=== PATIENT | female | born 1980 | race Caucasian/White ===

== ENCOUNTER → 2020-02-23 12:10 | Outpatient (CLI) | payer OTHER, SELFPAY ==
--- NOTE | ~2020-02-23 | MR_ITS ---
EXAMINATION: MR brain/brain stem wo con DATE: 02/23/2020 12:51 INDICATION: Migraine headache. Not intractable without status migrainosus. TECHNIQUE: Magnetic resonance imaging (MRI) of the brain and brainstem was performed without intraven ous contrast. Sequences included sagittal and axial T1-weighted FSE, axial diffusion-weighted FS EPI, axial T2*-weighted GRE, axial T2-weighted FLAIR Propeller, and axial T2-weighted Propeller. Apparent diffusion coefficient (ADC) maps were created. COMPARISON: Brain MRI 10/29/2009 FINDINGS: There is no intracranial hemorrhage, acute infarction, or abnormal intracranial mass lesion . The ventricles are normal in size. The orbits are normal. The paranasal sinuses are clear. The mast oid air cells are normal. IMPRESSION: 1. Normal brain. Reviewed, dictated and finalized at location B. IMPRESSION: 1. Normal brain.
== END ==
PROVIDERS: PCP Family Medicine; Visit Provider Family Medicine
DX: G43.909 Migraine, unspecified, not intractable, without status migrainosus (principal)
CPT/HCPCS: 70551

== ENCOUNTER → 2020-03-23 15:46 | Outpatient (CLI) | payer OTHER, SELFPAY ==
--- NOTE | ~2020-03-23 | US_ITS ---
EXAMINATION: US transvaginal DATE: 03/23/2020 16:11 INDICATION: Pelvic pain Comparison:Ultrasound dated 07/05/2008 TECHNIQUE: Multiple transabdominal and endovaginal sonographic images of the pelvis performed. FINDINGS: The uterus measures 7.2 x 4.6 x 4.5 cm. The endometrial complex measures 7 mm. The right ovary measures 1.5 x 1.6 x 1.3 cm and the left ovary measures 4.2 x 2.9 x 2.8 cm. There is a 3.1 cm left ovarian cyst. There is free fluid in the pelvis. There are no abnormal masses seen on either side. IMPRESSION: 1. 3.1 cm left ovarian cyst. Reviewed, dictated and finalized at location A.
== END ==
PROVIDERS: Visit Provider Nurse Practitioner
DX: N83.202 Unspecified ovarian cyst, left side (principal)
CPT/HCPCS: 76830

== ENCOUNTER → 2020-04-20 15:17 | Outpatient (CLI) | payer OTHER, SELFPAY ==
--- NOTE | ~2020-04-20 | CT_ITS ---
EXAMINATION: CT abdomen pelvis w con INDICATION: Right upper quadrant pain and swelling TECHNIQUE: Computed tomographic images of the abdomen and pelvis were obtained after the administrati on of 100 cc of Omnipaque 350 intravenous contrast. The dose-length product (DLP) was 551.31 mGy-cm. Automated exposure control and iterative reconstruction technique were employed. COMPARISON: 02/27/2006 FINDINGS: The lung bases are clear. The heart size is normal. The liver, spleen, pancreas, gallbladde r, and adrenal glands are normal. The kidneys are unremarkable. No pathologically enlarged abdominal or pelvic lymph nodes are identified. There is no free intraperitoneal gas or evidence of bowel obstr uction. A 3 cm cyst is noted in the left ovary. The appendix is normal. There is moderate lumbar spon dylosis at L5-S1. IMPRESSION: 1. No CT correlate for the patient's symptoms. Reviewed, dictated and finalized at location A.
== END ==
PROVIDERS: PCP Family Medicine; Visit Provider Nurse Practitioner
DX: R10.2 Pelvic and perineal pain (principal)
CPT/HCPCS: 74177; Q9967

== ENCOUNTER → 2020-05-11 15:44 | Outpatient (CLI) | payer OTHER, SELFPAY ==
--- NOTE | ~2020-05-11 | US_ITS ---
EXAMINATION: US transvaginal DATE: 05/11/2020 16:33 INDICATION: Ovarian cyst. TECHNIQUE: Multiple transvaginal sonographic images of the pelvis were obtained. COMPARISON: CT abdomen and pelvis 04/20/2020, ultrasound pelvis 03/23/2020 FINDINGS: The uterus is retroflexed and measures 8.7 x 4.2 x 4.2 cm. There are nabothian cysts in the cervix. T here is no free fluid in the pelvis. The endometrial complex measures 6 mm in thickness. The right ov nicole measures 3.6 x 1.9 x 3.2 cm. The left ovary measures 3.6 x 2.2 x 2.3 cm. There is normal vascular flow in the ovaries. IMPRESSION: 1. Normal ovaries. Reviewed, dictated and finalized at location B. HANA DEVELOPER IMPRESSION: 1. Normal ovaries.
== END ==
PROVIDERS: PCP Family Medicine; Visit Provider Obstetrics & Gynecology Gynecology
DX: N83.202 Unspecified ovarian cyst, left side (principal)
CPT/HCPCS: 76830

== ENCOUNTER 2020-05-20 11:00 | Outpatient (RCR) | payer OTHER, SELFPAY ==
--- NOTE | 2020-04-27 13:32 | PTOPEVAL ---
PHYSICAL THERAPY EVALUATION AND PLAN OF CARE Thank you for referring Luli Fish to [facility].? The patient is scheduled to be seen for therapy? 1x/week for 4-8 weeks. Please review, sign, date and return this plan of care ALBERTA. I agree with and certify that the following plan of care is medically necessary. Referring Physician Date Attending Provider: Nahomy Rodriguez, Evaluation Diagnosis right lower quadrant pain Onset 1 year Subjective Information Reports right lower abdominal Query Text:As Reported By Patient/ pain. States that she feels a Family tug of war in the right lower part of the abdomen. Sometimes feels a wave and feels like there is something in the way. States that she did therapy for this over 6 years ago and they did pressure point therapy to reduce adhesions. Self Report Pain Assessment Right Lower Abdomen Reported Pain Level 2 Pain Description Pulling Pain Frequency Chronic,Continuous Lowest Pain Intensity 2 Greatest Pain Intensity 8 Pain Score Pain Score 2: Self Report Interventions Used Interventions Used By Clinicians Exercise Cervical and Lumbar ROM Lumbar ROM Reason Not Measured WNL/Left,WNL/Right Lower Extremity Range of Motion General Lower Extremity Range of Motion Reason Not Measured WFL/Left,WFL/Right Cervical and Lumbar Muscle Testing Lumbar Strength Lower Abdominal Strength 2+Poor+ Lower Extremity Muscle Strength Testing General Lower Extremity Strength Gross Lower Extremity Strength right side hip flexion and extension: 4+/5; bilateral hip abduction: 4-/5 Muscle Length Testing Muscle Length Testing Piriformis w/Hip Flexion >90 Degrees (R) WFL,(L) WFL Piriformis w/Hip Flexion <90 Degrees (L) Mild Tightness,(R) Moderate Tightness Left Hamstring Length -30 Query Text:(90 - 90 Position) Right Hamstring Length -22 Query Text:(90 - 90 Position) Right Prone Knee Flexor Muscle Length ( 130 degrees) Left Prone Knee Flexor Muscle Length ( 142 degrees) Palpation Assessment Palpation Palpation -bilateral lumbar paraspinals and quadratus lumborum: tight to palpation and moderate tenderness. -bilateral hip flexors through abdomen: very mild right
--- NOTE | 2020-05-20 11:38 | PTOPEVAL ---
PHYSICAL THERAPY DISCHARGE SUMMARY Thank you for referring Luli Fish to [facility].? Luli has been seen in PT x 4 visits and is now pain free and no tugging sensation with R lower quadrant region. She is now ready for d/c from PT. I agree with Luli's discharge from PT. Referring Physician Date Admitting Provider: Attending Provider: Nahomy Rodriguez DO Referring Provider: *PT Outpatient Evaluation Start: 04/27/20 12:33 Freq: Status: Active Protocol: Document 05/20/20 11:05 MC (Rec: 05/20/20 11:38 MC [id number]) Therapy Assessment Status Assessment Status Assessment Status Discharge Evaluation Information Problem Subjective Information Luli reports no lower R Query Text:As Reported By Patient/ quadrant pain nor any tugging Family or pulling sensation. Has returned to usual activities - no pain. Pain Assessment Timing of Pain Assessment Timing of Pain Assessment Assessment Self Report Self Report Pain Level 0 Pain Score Pain Score 0: Self Report Cervical and Lumbar ROM Lumbar ROM Lumbar ROM WNL Lumbar Comments pelvis/sacrum/SIJ - level, symmetrical motion with trunk motion Palpation Assessment Palpation Palpation almost symmetrical lower quadrant mobility - very mild decrease on R with lateral to medial motion. Equal SIJ mobility with testing from ankles. Equal LE movement felt with cranio-sacral mobility testing. No discomfort with mobility testing. PT Clinical Summary Clinical Summary Protocol: PTEVCODE PT Clinical Summary Luli is doing well - no c /o's discomfort or soft tissue tension. Able to promote symmetrical lower quadrant mobility with soft tissue mobilization techniques. She is ready for d/c from PT.
== END 2020-05-21 08:22 | disposition home or self-care (01) ==
LOC: ANHPT 11:00
PROVIDERS: PCP Family Medicine; Visit Provider Family Medicine
DX: R10.31 Right lower quadrant pain (principal)
CPT/HCPCS: 97110; 97140; 97162

== ENCOUNTER → 2020-10-14 17:40 | Outpatient (CLI) | payer OTHER, SELFPAY ==
--- NOTE | ~2020-10-14 | MM_ITS ---
EXAMINATION: MM screening dian BI w zenobia HISTORY: Screening TECHNIQUE: Craniocaudal and mediolateral oblique 3-D tomosynthesis images were obtained and synthetic 2-D images were generated. CAD analysis was submitted and interpreted. COMPARISON: No prior mammogram is available for comparison at this institution. BREAST PARENCHYMAL COMPOSITION: The breasts are heterogeneously dense, which may obscure small masses . FINDINGS: There is no evidence of suspicious mass, calcification, or architectural distortion to sugg est malignancy in either breast. There has been no suspicious interval change. IMPRESSION: 1. No mammographic evidence of malignancy. 2. Recommend routine screening mammography in one year. BI-RADS Category 1: Negative Reviewed, dictated and finalized at location A.
== END ==
PROVIDERS: Visit Provider Nurse Practitioner
DX: Z12.31 Encounter for screening mammogram for malignant neoplasm of breast (principal)
CPT/HCPCS: 77063; 77067

== ENCOUNTER → 2021-11-22 16:33 | Outpatient (CLI) | payer OTHER, SELFPAY ==
--- NOTE | ~2021-11-22 | MM_ITS ---
EXAMINATION: MM screening dian BI w zenobia HISTORY: Screening mammogram TECHNIQUE: Craniocaudal and mediolateral oblique 3-D tomosynthesis images were obtained and synthetic 2-D images were generated. CAD analysis was submitted and interpreted. COMPARISON: 10/14/2020 bilateral screening mammogram BREAST PARENCHYMAL COMPOSITION: There are scattered areas of fibroglandular density. FINDINGS: There is no evidence of suspicious mass, calcification, or architectural distortion to sugg est malignancy in either breast. There has been no suspicious interval change. IMPRESSION: 1. No mammographic evidence of malignancy. 2. Recommend routine screening mammography in one year. BI-RADS Category 1: Negative. Reviewed, dictated and finalized at location A.
== END ==
PROVIDERS: PCP Family Medicine; Visit Provider Nurse Practitioner
DX: Z12.31 Encounter for screening mammogram for malignant neoplasm of breast (principal)
CPT/HCPCS: 77063; 77067

== ENCOUNTER 2022-03-14 16:02 | Emergency (ER) | payer OTHER, SELFPAY ==
--- NOTE | ~2022-03-14 | US_ITS ---
EXAMINATION: US pelvic complete w TV DATE: 03/14/2022 22:01 INDICATION: RLQ pain, R ovarian cyst on CT, r/o torsion TECHNIQUE: Multiple transabdominal and endovaginal sonographic images of the pelvis were obtained. COMPARISON: CT abdomen and pelvis, same date. FINDINGS: Uterus: 6.3 x 4.8 x 4.2 cm. Retroverted uterus. Endometrial complex measures 11 mm. Somewhat masslike appearance of the cervix, with multiple avascular, ovoid hypoechoic areas with increased through tra nsmission, many with punctate internal echogenicities with tail artifact, some may solid internal com ponent versus debris. Right Ovary: 3.9 x 2.7 x 3.8 cm. Vascular flow is present. 2.9 cm simple right ovarian cyst. Left Ovary: 3.1 x 1.6 x 2.2 cm. Vascular flow is present. There is no free fluid in the pelvis. IMPRESSION: 1. Multicystic, possibly cystic and solid cervical lesions which may represent multiple nabothian cys ts, complex nabothian cyst dilation (the so-called tunnel cluster), tumor (such as adenocarcinoma or adenoma malignum), or cystic cervicitis. Recommend gynecology referral for further evaluation. 2. No sonographic evidence of ovarian torsion. Reviewed, dictated and finalized at location K. IMPRESSION: 1. Multicystic, possibly cystic and solid cervical lesions which may represent multiple nabothian cysts, complex nabothian cyst dilation (the so-called tunnel cluster), tumor (such as adenocarcinoma or adenoma malignum), or cystic cervic itis. Recommend gynecology referral for further evaluation. 2. No sonographic evidence of ovarian torsion.
--- NOTE | ~2022-03-14 | CT_ITS ---
EXAMINATION: CT abdomen pelvis wo con DATE: 03/14/2022 19:08 INDICATION: RLQ pain / R anterior hip pain TECHNIQUE: Computed tomography (CT) of the abdomen and pelvis was performed without intravenous contr ast. Automated exposure control and iterative reconstruction technique were employed. The dose-length product was 428.15 mGy-cm. COMPARISON: 04/20/2020. FINDINGS: Lower thorax: Unremarkable Liver: Normal. Biliary/Gallbladder: Gallbladder is normal. No bile duct dilation. Pancreas: No mass or duct dilation. Spleen: Normal. Adrenals:No mass. Kidneys: No mass, stone, or hydronephrosis. GI tract: No small or large bowel dilation. Normal appendix. Mesentery/Peritoneum: No ascites, mass, or free air. Retroperitoneum: No mass. Pelvis: Pelvic organs are within normal limits. 2.7 cm right ovarian cyst, doubtful clinical signific ance. Retroverted uterus. Partially distended urinary bladder. Soft Tissues: Soft tissues and body wall unremarkable. Bones: No acute osseous finding. IMPRESSION: No acute abdominopelvic process detected. Reviewed, dictated and finalized at location K.
[2022-03-14 16:09] VITALS: BP 146/79; PULSE 82; RESP 18; TEMP 36.8; O2SAT 99
--- NOTE | 2022-03-14 18:39 | ED.GENADULT ---
HPI - General Adult General Chief complaint: Unspecified Stated complaint: Right Side Pain x 3 days Time Seen by Provider: 03/14/22 18:08 Source: patient Mode of arrival: ambulatory Limitations: no limitations History of Present Illness HPI narrative: Patient is a 41-year-old female who presents the ED with report of right-sided/right lower quadrant/right upper hip pain for the past 3 days. Pain aggravated with movement and walking. No other significant aggravating factors. No known injury. She has tried taking ibuprofen at home without relief. She otherwise denies any other symptoms, fever, nausea, vomiting, diarrhea, constipation, urinary symptoms, numbness, tingling, weakness. Related Data Home Medications Medication Instructions Recorded Confirmed cholecalciferol (vitamin D3) 1,250 1,250 mcg PO WEEKLY 02/17/20 04/22/20 mcg (50,000 unit) capsule cyanocobalamin (vitamin B-12) 1,000 mcg IM WEEKLY 02/17/20 04/22/20 1,000 mcg/mL injection solution levothyroxine 125 mcg capsule 125 mcg PO DAILY 02/17/20 04/22/20 (Tirosint) norgestimate-ethinyl estradiol 1 tablet PO DAILY 02/17/20 04/22/20 0.18 mg/0.215mg/0.25mg-35 mcg(28)tablet (Ortho Tri-Cyclen (28)) Allergies Allergy/AdvReac Type Severity Reaction Status Date / Time iodine Allergy Unknown unkn Verified 04/22/20 13:25 sulfamethizole Allergy Unknown Skin Verified 04/22/20 13:25 Reaction sulfamethoxazole Allergy Unknown RASH Verified 04/22/20 13:25 trimethoprim Allergy Unknown RASH Verified 04/22/20 13:25 Contrast Media Allergy Mild ITCHING Uncoded 04/22/20 13:25 Review of Systems Review of Systems: CONSTITUTIONAL: Denies fever, chills, or sweats. CARDIOVASCULAR: Denies chest pain. RESPIRATORY: Denies dyspnea. GASTROINTESTINAL: Reports right lower quadrant abdominal pain. Denies constipation, nausea, vomiting, or diarrhea. GENITOURINARY: Denies dysuria or hematuria. MUSCULOSKELETAL: Reports right hip/right side pain. NEUROLOGIC: Denies tingling, numbness, or weakness. All systems reviewed & are unremarkable except as noted in HPI and below PMFSH Past Medical History Medical History Hypothyroidism Surgical History Surgical History History of bunionectomy History of section History of surgical removal of ganglion cyst Social History Social History Smoking status: Never smoker Alcohol intake: never Exam Narrative: GENERAL: Well appearing, well-nourished, non-toxic, in no acute distress. HEAD: Normocephalic, atraumatic. NECK: Supple. No adenopathy, no masses. RESPIRATORY: Airway patent, respirations nonlabored. Clear to auscultation bilaterally, no rales, rhonchi, wheezing. CARDIOVASCULAR: Regular rate and rhythm without murmurs, rubs, or gallops. Peripheral pulses 2+ and equal bilaterally. ABDOMINAL: Soft, mild tenderness to palpation in right lower quadrant, right lateral abdomen, right pelvic region, and over anterior iliac crest. Nondistended, no hepatosplenomegaly. Normoactive BS. MUSCULOSKELETAL: Moves all extremities. Strength/ROM intact without gross deformities. No reproduction of pain with movement of right hip/right lower extremity. SKIN: Warm, dry, normal color. No rashes. NEURO: A&O X3. Speech clear. Cranial nerves II-XII grossly intact. Steady gait. No ataxic movements. PSYCHIATRIC: Appropriate mood and affect. Normal interaction. Course Vital Signs Vital signs: Vital Signs Temperature 98.3 F 03/14/22 16:09 Pulse Rate 82 03/14/22 16:09 Respiratory Rate 18 03/14/22 16:09 Blood Pressure 146/79 H 03/14/22 16:09 Pulse Oximetry 99 03/14/22 16:09 Oxygen Delivery Room Air 03/14/22 16:09 Temperature 98.3 F 03/14/22 16:09 Pulse Rate 81 03/14/22 23:01 Respiratory Rate 18 03/14/22 23:01 Blood Pressure 1
[2022-03-14 18:56] LABS: Basophils Absolute Auto 0.1 K/mm3 (0.0-0.1); Eosinophils Absolute Auto 0.2 K/mm3 (0-0.3); Eosinophils Percent Auto 3.6 % (0-4.4); Hematocrit 37.4 % (37.0-47.0); Hemoglobin 12.6 g/dL (12.0-15.0); Immature Granulocyte Absolute 0.01 K/mm3 (0.00-0.031); Immature Granulocyte Percent A 0.1 % (0-0.5); Lymphocytes Percent Auto 20.9 % (18.3-44.2); Mean Corpuscular HGB Conc 33.7 g/dl (32-36); Mean Corpuscular Hemoglobin 31.7 pg (26-34); Mean Corpuscular Volume 94.2 fl (80-100); Mean Platelet Volume 8.8 fl (7.4-10.4); Monocytes Absolute Auto 0.4 K/mm3 (0.1-0.6); Monocytes Percent Auto 5.5 % (2.6-8.5); Neutrophils Absolute Auto 4.6 K/mm3 (1.3-6.7); Neutrophils Percent Auto 68.9 % (45.5-73.1); Platelet Count Result 271 k/mm3 (150-375); Red Blood Count 3.97 M/mm3 (4.2-5.4); Red Cell Distribution Width 13.1 % (11.5-14.5); White Blood Count 6.7 K/mm3 (4.5-10.0)
[2022-03-14 19:07] LABS: Alanine Aminotransferase 23 U/L (6-35); Albumin Level 4.1 g/dL (3.5-5.1); Alkaline Phosphatase 107 U/L (38-126); Anion Gap 7 mmol/L (8-16); Aspartate Amino Transferase 23 U/L (14-36); Bilirubin,Total 0.4 mg/dL (0.2-1.3); Blood Urea Nitrogen 12 mg/dL (7-17); Calcium 9.1 mg/dL (8.4-10.2); Carbon Dioxide 24 mmol/L (22-30); Chloride 104 mmol/L (98-107); Estimated CRCL calculation 94 ml/min; Estimated Glomerular Filt Rate > 60; Glucose 93 mg/dL (65-110); Potassium 3.4 mmol/L (3.4-5.0); Sodium 135 mmol/L (137-145)
[2022-03-14 19:15] LABS: Bacteria Urine Trace /hpf; Mucus Urine Rare /lpf; RBC Urine 0-2 /hpf (0-2); Squamous Epithelial Cell Urine Few /hpf (Few); WBC Urine 0-3 /hpf
[2022-03-14 19:19] LABS: Appearance Urine Slightly Cloudy (Clear); Bilirubin Urine Negative (Negative); Color Urine Yellow (Yellow); Glucose Urine UA Negative (Negative); Ketones Urine 1+ mg/dL (Negative); Leukocyte Esterase Ur Negative LEU/UL (Negative); Nitrate Urine Negative (Negative); Protein Urine Negative (Negative); Specific Grav Ur 1.015 (1.001-1.035); Urobilinogen Urine 0.2 mg/dL (<2.0); pH Urine 6.5 (5.0-9.0)
[2022-03-14 19:20] LABS: Add Urine Microscopic? YES; Blood Urine Trace-Intact (Negative)
[2022-03-14] MEDS: KETOROLAC 30 MG/ML VIAL (*BKC) IV PUSH (19:45)
[2022-03-14 23:01] VITALS: BP 130/88; PULSE 81; RESP 18; O2SAT 99
== END 2022-03-14 23:03 | disposition home or self-care (01) ==
PROVIDERS: Physician Assistant; Emergency Provider Emergency Medicine; PCP Family Medicine
DX: R10.31 Right lower quadrant pain (principal); M25.551 Pain in right hip; N83.201 Unspecified ovarian cyst, right side; N88.9 Noninflammatory disorder of cervix uteri, unspecified; E03.9 Hypothyroidism, unspecified
CPT/HCPCS: 36415; 74176; 76830; 76856; 80053; 81001; 85025; 96365; 96375; 99284; J0131; J1885

== ENCOUNTER → 2022-05-10 15:05 | Outpatient (CLI) | payer OTHER, SELFPAY ==
--- NOTE | ~2022-05-10 | MR_ITS ---
EXAMINATION: MR brain/brain stem wo/w con DATE: 05/10/2022 16:00 INDICATION: Hypersomnia. TECHNIQUE: Magnetic resonance imaging (MRI) of the brain and brainstem was performed without and with 16 mL MultiHance intravenous contrast. COMPARISON: Brain MRI 02/23/2020 FINDINGS: There is no intracranial hemorrhage, acute infarction, or abnormal intracranial mass lesion . The ventricles are normal in size. The paranasal sinuses are clear. The orbits are normal. The mast oid air cells are normal. IMPRESSION: 1. Normal brain. Reviewed, dictated and finalized at location A. ER SANDER IMPRESSION: 1. Normal brain.
== END ==
PROVIDERS: PCP Family Medicine; Visit Provider Nurse Practitioner
DX: G47.10 Hypersomnia, unspecified (principal)
CPT/HCPCS: 70553; A9577

== ENCOUNTER 2022-06-12 01:37 | Day surgery (SDC) | payer OTHER, SELFPAY ==
[2022-05-30 09:56] VITALS: BMI 28.3
--- NOTE | 2022-05-30 09:57 | SUR.PREOP ---
Report to the Outpatient Waiting Room, entrance under the green pavilion located off [facility], at time _0745 on date _06/12/22 . Planned Procedure Time: _944 . Time changes happen often and if your time is changed the preop area will call you the afternoon before. - You and your visitor will be asked to self-screen and do not enter if you have any COVID symptoms. - Only one visitor is requested with a max of two and NO children visitors are allowed at this time. - The patient visitor may be requested to leave or wait in car when not with patient due to distancing restrictions. - A mask is optional within the hospital. Patients may have clear liquids (water, carbonated beverages, clear teas, apple juice) until 3 hours prior to surgery with a maximum of 20 ounces. - No food from midnight until time of surgery - Infants may have breast milk until 4 hours before surgery, formula 6 hours prior to surgery. - Children will be allowed to drink immediately following surgery. If applicable, please bring a bottle or sippy cup to assist with drinking. Juice, water, soda, and popsicles are readily available. For infants on formula, please bring formula the day of surgery. Pacifiers are allowed. Take the following medications with a SIP of water the morning of surgery: _contrave,levothyoxine Medications to discontinue per physician ____n/a Date to take last dose__n/a Please no make-up, nail macedonian, hairspray, perfume, deodorant, or body powder the day of surgery. No jewelry (including any body piercings) or valuables the day of surgery, leave them at home. Please take a shower or bath the night before, or the morning of, surgery with an antibacterial soap. Wear comfortable, loose fitting clothing. Children are encouraged to wear pajamas. - Jewelry must be removed prior to entering the operating room. Rings and piercings that are not removed may be cut off. - The hospital will not accept responsibility for valuables. - Please leave all valuables, including medications, at home the day of surgery. If you are going home after surgery, a licensed ambulance driver must drive you home. - NO public transportation without another adult if you receive anesthesia. - We recommend that an adult stay with you for 24 hours following discharge. - We also recommend that you do not drive, make important decision, drink alcoholic beverages, or take any drugs that were not prescribed by your health care provider for at least 24 hours after your discharge time. For Pediatric surgeries, we recommend two adults accompany the child home. Follow any additional instructions given to you from your surgeon. If you or anyone in your household have experienced Covid symptoms in the past week, please notify your surgeon or the nurse liaison at the phone number below for possible testing. Telephone instructions given to _cailin schwartz and asked if any additional questions and then verbalized understanding. Patient advised to call surgeon office or pre surgery nurse liaison [phone] if any additional questions.
[2022-06-12] VITALS (9 sets, daily range): BP systolic 113–125; BP diastolic 69–86; PULSE 75–98; RESP 12–20; TEMP 36.5–36.8; O2SAT 98–100
--- NOTE | 2022-06-12 07:34 | WPDHPUPDATE1 ---
History and Physical Update Update Date/Time: 06/12/22 07:34 History and Physical has been reviewed, including an updated exam of the patient. There are NO changes in the patient's condition. Risks, benefits, and alternatives have been discussed and questions answered. Patient agrees to proceed with procedure.
--- NOTE | 2022-06-12 07:34 | PM.HPGS ---
History of Present Illness History of Present Illness Consent: Risks, benefits, and alternatives have been discussed and questions answered. Patient agrees to proceed with procedure. Chief complaint: sterilization Narrative: Luli Fish is a 41 year old female who has requested permanent sterilization. In addition the patient went to emergency room for pelvic pain and had a pelvic ultrasound performed that showed an abnormal cervical findings. Patient underwent colposcopy in the office with no abnormalities visualized. It was recommended to proceed with a LEEP conization with top-hat to further evaluate the cervical findings by ultrasound. Risks of infection, bleeding, injury to internal organs, failure of the tubal ligation with increased ectopic , as well as possible pathology findings are reviewed. Patient voices understanding and agrees to proceed. Review of Systems Review of Systems: not repeated day of surgery; patient states no changes in status PMFSH Past Medical History Medical History (Updated 06/12/22 @ 08:03 by Jimena Quezada MD) Depression 2006 Fibromyalgia Hypothyroidism Migraine PCOS (polycystic ovarian syndrome) Surgical History Surgical History (Updated 06/12/22 @ 08:02 by Jimena Quezada MD) History of bunionectomy History of section History of hand surgery History of lumbar discectomy History of surgical removal of ganglion cyst History of tonsillectomy Hx of LASIK Social History Social History Smoking status: Never smoker Alcohol intake: never Living arrangements: with family Spiritual care concerns: No Meds Home Medications and Allergies Home Medications Medication Instructions Recorded Confirmed Type cholecalciferol (vitamin D3) 1,250 1,250 mcg PO WEEKLY 02/17/20 05/30/22 History mcg (50,000 unit) capsule cyanocobalamin (vitamin B-12) 1,000 mcg IM WEEKLY 02/17/20 05/30/22 History 1,000 mcg/mL injection solution norgestimate-ethinyl estradiol 1 tablet PO DAILY 02/17/20 05/30/22 History 0.18 mg/0.215mg/0.25mg-35 mcg(28)tablet (Ortho Tri-Cyclen (28)) naltrexone 8 mg-bupropion 90 mg 1 tablet PO BID 04/24/22 05/30/22 History tablet,extended release (Contrave) ferrous sulfate 324 mg (65 mg 324 mg PO DAILY #90 tabs 04/25/22 05/30/22 Rx iron) tablet,delayed release eszopiclone 2 mg tablet (Lunesta) 2 mg PO QHS #1 tablet 05/04/22 05/30/22 Rx levothyroxine 125 mcg capsule 137 mcg PO DAILY 05/04/22 05/30/22 History (Tirosint) valacyclovir 1 gram tablet 500 mg PO DAILY 05/30/22 05/30/22 History Allergies Allergy/AdvReac Type Severity Reaction Status Date / Time trimethoprim Allergy Intermediate RASH Verified 05/30/22 09:33 iodine Allergy Mild Itching Verified 05/30/22 09:33 sulfamethizole Allergy Unknown Skin Verified 05/30/22 09:33 Reaction Contrast Media Allergy Mild ITCHING Uncoded 05/30/22 09:33 Exam Const: General: healthy appearing and alert Orientation/consciousness: patient oriented x3 Resp: Effort & Inspection: normal respiratory effort GI: GI Palp: Yes Soft to palpation, No Tenderness to palpation present (GI) and No Palpable mass present : External Female Exam: normal external appearance Speculum Exam - Vagina: normal appearance of the vagina and normal vaginal discharge Speculum Exam - Cervix: normal appearance of the cervix Bimanual exam- vagina & uterus: uterine size normal and consistency normal Bimanual Exam- Adnexa, other: normal adnexae and No adnexal tenderness Neuro: General: patient oriented x3 Assessment and Plan Assessment and plan (1) Encounter for sterilization: Code(s): Z30.2 - Encounter for sterilization Status: Acute Assessment and Plan: plan to proceed with laparoscopic bilateral salpingectomies (2) Abnormality of cervix: Code(s): N88.9 - Noninflammatory disor
[2022-06-12] MEDS: LACTATED RINGERS 1,000 ML 30 ML IV CONT ×2 (08:15→11:38)
[2022-06-12] MEDS: ACETAMINOPHEN 500 MG TABLET 1000 MG PO (08:20)
[2022-06-12] MEDS: KETOROLAC 15 MG/ML VIAL (*BKC) IV PUSH (08:21)
--- NOTE | 2022-06-12 08:27 | WPDANESEPPF ---
Anes - Initial Pre Proc Eval Procedure: Operation Date: 06/12/22 09:45 Proposed Procedures p Bilateral Laparoscopic Salpingectomy, - Jimena Quezada MD s Loop Electrical Excision Procedure - Jimena Quezada MD Date/Time: 06/12/22 08:27 Surgeon: Jimena Quezada MD Pre Op Diagnosis: sterilization Patient Data Age: 41 Gender: F Height: 1.65 m Weight: 77.27 kg Allergies Allergy/AdvReac Type Severity Reaction Status Date / Time trimethoprim Allergy Intermediate RASH Verified 06/12/22 08:12 iodine Allergy Mild Itching Verified 06/12/22 08:12 sulfamethizole Allergy Unknown Skin Verified 06/12/22 08:12 Reaction Contrast Media Allergy Mild ITCHING Uncoded 06/12/22 08:12 Home Medications Medication Instructions Recorded Confirmed Type cholecalciferol (vitamin D3) 1,250 1,250 mcg PO WEEKLY 02/17/20 06/12/22 History mcg (50,000 unit) capsule cyanocobalamin (vitamin B-12) 1,000 mcg IM WEEKLY 02/17/20 06/12/22 History 1,000 mcg/mL injection solution norgestimate-ethinyl estradiol 1 tablet PO DAILY 02/17/20 06/12/22 History 0.18 mg/0.215mg/0.25mg-35 mcg(28)tablet (Ortho Tri-Cyclen (28)) naltrexone 8 mg-bupropion 90 mg 1 tablet PO BID 04/24/22 06/12/22 History tablet,extended release (Contrave) ferrous sulfate 324 mg (65 mg 324 mg PO DAILY #90 tabs 04/25/22 06/12/22 Rx iron) tablet,delayed release eszopiclone 2 mg tablet (Lunesta) 2 mg PO QHS #1 tablet 05/04/22 06/12/22 Rx levothyroxine 125 mcg capsule 137 mcg PO DAILY 05/04/22 06/12/22 History (Tirosint) valacyclovir 1 gram tablet 500 mg PO DAILY 05/30/22 06/12/22 History Patient hx anesthesia problems: none Family hx anesthesia problems: none Results Review: All pre-operative results and documents have been reviewed as part of the pre-operative evaluation. [facility] Past Medical History Medical History (Updated 12/12/22 @ 08:03 by Jimena Quezada MD) Depression 2007 Fibromyalgia Hypothyroidism Migraine PCOS (polycystic ovarian syndrome) Surgical History Surgical History (Updated 06/12/22 @ 08:02 by Jimena Quezada MD) History of bunionectomy History of section History of hand surgery History of lumbar discectomy History of surgical removal of ganglion cyst History of tonsillectomy Hx of LASIK Social History Social History Smoking status: Never smoker Alcohol intake: never Living arrangements: with family Spiritual care concerns: No Anes - Eval Final PreProcedure Day of Procedure 06/12/22 08:27 Patient weight: overweight Heart: regular rate and rhythm Lungs: clear to auscultation and normal air movement Airway: Mallampati scale class II Neurological: alert and oriented Last oral intake: >/= 8 hours ASA classification: II Emergent: no Anesthetic plan: proceed Anesthesia type and monitoring: general ETT Results Review: All pre-operative results and documents have been reviewed as part of the pre-operative evaluation. Informed Consent: The patient's anesthetic plan and its attendant risks and benefits were discussed with the patient/family/POA. Questions were solicited and answers provided to the satisfaction of the patient/family/POA.
--- NOTE | 2022-06-12 11:04 | P.OP_ITS ---
Procedure Note - Detailed Date of Procedure 06/12/22 Pre-op Diagnosis Encounter for sterilization abnormal cervix on pelvic ultrasound Post-op Diagnosis Same Procedure Performed laparoscopic bilateral salpingectomy LEEP conization with top-hat Surgeon Jimena Quezada MD Anesthesia General and Local ( 1% lidocaine with epi) Findings Both fimbriated ends are attached to the ovaries and the left tube has tubal cyst noted. Otherwise the pelvis appears grossly normal. Cervix appears grossly normal. Description of Procedure The patient is taken to the operating room and placed under general anesthesia in the dorsal lithotomy position. She was prepped and draped the usual sterile fashion. The bladder was drained with a red rubber catheter. [place] speculum was placed in the vagina and the cervix grasped on the anterior lip with a tenaculum. The acorn manipulator was placed and the speculum removed. Attention was then turned to the abdomen where a vertical skin incision was made at the base of the umbilicus. The abdomen is tented and Veress needle placed. Water drop test is normal and opening patient pressure was 4mmHg. Pneumoperitoneum was obtained to a patient pressure of 15 mmHg. The 5mm Optiview trocar was then placed with intra-abdominal placement being confirmed with the laparoscope. The patient was then placed in Trendelenburg and a 5mm skin incision made at the symphysis pubis. Under direct visualization a 5mm tr ocar is placed. A 2nd 5mm trocar was placed in the right lower quadrant. The grasper was used to grasp the right tube. Using the LigaSure the fimbriated and of the tube is cauterized and cut away from the ovary. The mesosalpinx is then followed to approximately 2cm above the cornea where the tube was crossclamped and excised. The identical procedure was performed on the left side. Good hemostasis is noted at both pedicle sites. Pneumoperitoneum was reduced and the trocars are removed. Skin incisions were closed using 4-0 nylon in interrupted fashion. Attention was turned to the vagina where a coated bivalve speculum was placed in the vagina and the cervix injected in each quadrant with 1% lidocaine with epinephrine. A 2x1 1cm loop was used for a single pass LEEP followed by a 1x1cm single pass top-hat. Monsel solution was placed over the cone bed and good hemostasis is noted. All instruments are removed. The patient is awakened from anesthesia and taken to recovery in s table condition. Sponge, needle, and instrument counts are correct per the OR staff. Estimated Blood Loss 5 Drains No Packing No Pathology Yes ( Top-hat marked at 12 and LEEP marked at 12) Complications No immediate complications Condition Stable Disposition PACU
[2022-06-12] MEDS: fentaNYL CITRATE INJ (*CRX) 100 MCG/2 ML VIAL 25 MCG IV PUSH ×2 (11:39→11:42)
[2022-06-12] MEDS: oxyCODONE HCL (*CRX) 5 MG TAB IR PO (12:15)
== END 2022-06-12 13:07 | disposition home or self-care (01) ==
PROVIDERS: PCP Family Medicine; Visit Provider Obstetrics & Gynecology Gynecology
PROC: (CPT 49320; principal; 2022-06-12 09:45)
PROC: 0UBC7ZZ Excision of Cervix, Via Natural or Artificial Opening (ICD-10-PCS; CPT 57522; 2022-06-12 09:45)
DX: Z30.2 Encounter for sterilization (principal); N88.9 Noninflammatory disorder of cervix uteri, unspecified; N83.8 Other noninflammatory disorders of ovary, fallopian tube and broad ligament; E03.9 Hypothyroidism, unspecified; M79.7 Fibromyalgia; E28.2 Polycystic ovarian syndrome
CPT/HCPCS: 58661; 57522; 88302; 88307; A9270; J1100; J1885; J2250; J2405; J2704; J3010; J7120

== ENCOUNTER 2022-06-21 07:53 | Outpatient (CLI) | payer OTHER, SELFPAY ==
--- NOTE | 2022-07-14 16:52 | WPDSLEEPSTUD ---
Sleep Study Date of Study: 06/21/22 Ordering Provider: Cyndie Aponte DO Interpreting Physician: Cyndie Aponte DO Sleep Study Type: Polysomnogram Height: 1.65 m Weight: 77.111 kg Body Mass Index: 28.3 Neck Circumference (inches): 16 [place]: 18 Reason for Sleep Study Daytime hypersomnia Sleep History The patient is a 41-year-old female that had a sleep study ordered for evaluation of hypersomnia. The patient denies awakening from sleep short of breath. She denies awakening at night with heartburn, belching or cough. She denies snoring loudly enough that others complain. She occasionally has trouble sleeping when she has a cold. She denies waking up gasping for air throughout the night. She denies having breathing problems at night observed by herself or others. She frequently sweats excessively at night. She denies having heart palpitations or irregular heartbeats during the night. She frequently falls asleep during the day but never while driving. He denies sleep paralysis and cataplexy. She frequently has trouble at school or work due to sleepiness. He constantly experiences vivid dreamlike scenes upon awakening or falling asleep. She denies feeling afraid of going to sleep. She occasionally has nightmares and occasionally remembers her dreams. She constantly has thoughts racing through her mind. She denies feeling sad, depressed or anxious. She constantly has muscular tension. She occasionally notices parts of her body jerk. She denies kicking during the night. She denies having crawling and aching feelings in her legs and occasionally has leg pain during the night. She denies grinding her teeth during sleep and denies awakening with morning jaw pain. She is occasionally bothered by pain during the day but never awakened by pain during the night. She occasionally wakes up feeling stiff in the morning. She occasionally wakes up with sore or achy muscles. She frequently wakes up with pain in the neck, spine or other joints. He goes to bed at 8:00 p.m. on both weekdays and weekends. She is able to fall asleep within 30 minutes. She wakes up 2-3 times throughout the night to urinate. She is able to fall asleep immediately. He wakes up at 5:30 a.m. on weekdays and at noon on the weekends. He typically gets 9-12 hours of sleep per night. She does not stay in bed after waking up in the morning. She currently lives with her , son, knees and [id number]. She will take naps on the weekend. He does not consume any caffeinated beverages within 2 hours of bedtime. She does not engage in physical exercise before bedtime. She denies reading before falling asleep. She will watch television before falling asleep. She will take naps in the afternoon or the evening but they are not refreshing. He drinks 1 soda per day at most. She denies tobacco, alcohol and recreational drug use. [facility] Past Medical History Medical History Depression 2006 Fibromyalgia Hypothyroidism Migraine PCOS (polycystic ovarian syndrome) Surgical History Surgical History History of bunionectomy History of section History of hand surgery History of lumbar discectomy History of surgical removal of ganglion cyst History of tonsillectomy Hx of [facility] Social History Social History Smoking status: Never smoker Alcohol intake: never Lack of Transportation: No Lack of Food: Never True Current Housing: I Have Housing Concerned About Future Housing: No Difficulty Paying Gas/Electric Bills: No Difficulty Paying for Meds: No Currently Unemployed: No Education: Bachelor's Degree Difficulty w/ Childcare or Family Care: No Spiritual care concerns: No Medications Home Medications Medication Instructions Recorde
[2022-07-14 17:01] VITALS: BMI 28.3
== END 2022-06-22 06:21 | disposition home or self-care (01) ==
LOC: ANHCSM 07:55
PROVIDERS: PCP Family Medicine; Visit Provider Family Medicine
DX: G47.10 Hypersomnia, unspecified (principal); G47.61 Periodic limb movement disorder
CPT/HCPCS: 95811

== ENCOUNTER → 2023-01-18 06:59 | Outpatient (CLI) | payer OTHER, SELFPAY ==
--- NOTE | ~2023-01-18 | MM_ITS ---
EXAMINATION: MM screening [facility] BI w [place] HISTORY: Screening TECHNIQUE: Craniocaudal and mediolateral oblique 3-D tomosynthesis images were obtained and synthetic 2-D images were generated. CAD analysis was submitted and interpreted. COMPARISON: Comparison to multiple prior studies sequentially, with oldest reviewed study dated 10/14. BREAST PARENCHYMAL COMPOSITION: There are scattered areas of fibroglandular density. FINDINGS: There is no evidence of suspicious mass, calcification, or architectural distortion to sugg est malignancy in either breast. There has been no suspicious interval change. IMPRESSION: 1. No mammographic evidence of malignancy. 2. Recommend routine screening mammography in one year. BI-RADS Category 1: Negative Reviewed, dictated and finalized at location A.
== END ==
PROVIDERS: PCP Nurse Practitioner; Visit Provider Nurse Practitioner
DX: Z12.31 Encounter for screening mammogram for malignant neoplasm of breast (principal)
CPT/HCPCS: 77063; 77067

== ENCOUNTER → 2023-04-27 16:28 | Outpatient (CLI) | payer OTHER, SELFPAY ==
--- NOTE | ~2023-04-27 | XR_ITS ---
EXAMINATION:XR cervical spine 4-5V DATE: 04/27/2023 16:52 INDICATION: Neck pain TECHNIQUE: AP, lateral, lateral swimmers and odontoid views of the cervical spine are provided. COMPARISON: None FINDINGS: There is straightening of the cervical spine which can be positional or due to muscular spa sm. Alignment is normal. The odontoid process is intact. No fracture is identified. Vertebral body he ights and disk spaces are normal. Prevertebral soft tissues are normal. IMPRESSION: 1. No acute osseous abnormality. Straightening of the cervical spine may be positional or due to musc ular spasm. Reviewed, dictated and finalized at location F. IMPRESSION: 1. No acute osseous abnormality. Straightening of the cervical spine may be pos itional or due to muscular spasm.
== END ==
DX: M54.2 Cervicalgia (principal)
CPT/HCPCS: 72050

== ENCOUNTER → 2023-05-11 10:44 | Outpatient (CLI) | payer OTHER, SELFPAY ==
--- NOTE | ~2023-05-11 | MR_ITS ---
MRI of the cervical spine Clinical History: Cervicalgia Technique: Axial T2-weighted and gradient images, and sagittal T1-weighted, T2-weighted, and STIR kimberly ges were acquired. Findings: There is no fracture or subluxation of the cervical spine. There is straightening of the no rmal cervical lordosis. No significant bone marrow signal abnormality seen. No significant disc bulge or herniation seen at any cervical level. No spinal canal stenosis, cord co mpression, or neural foraminal narrowing seen in the cervical spine. No abnormal signal seen in the spinal cord. No epidural mass or collection seen. Paravertebral soft t issues are unremarkable. Impression: Unremarkable exam. Reviewed, dictated and finalized at location M. ICAL HAEMATOLOGIST Impression: Unremarkable exam.
== END ==
DX: M54.2 Cervicalgia (principal)
CPT/HCPCS: 72141

== ENCOUNTER 2023-06-04 16:31 | Outpatient (CLI) | payer OTHER, SELFPAY ==
--- NOTE | ~2023-06-04 | MR_ITS ---
EXAMINATION: MR thoracic spine wo con DATE: 06/04/2023 17:14 INDICATION: Pain in thoracic spine. TECHNIQUE: Magnetic resonance imaging (MRI) of the thoracic spine was performed without intravenous c ontrast. COMPARISON: CT abdomen and pelvis 04/13/2022 FINDINGS: Bone alignment is normal. Vertebral body heights are normal. There is a hemangioma in T9 ve rtebral body. Intervertebral disc heights are normal. The discs do not extend beyond the endplate mar gins. There is multilevel mild facet joint osteoarthritis. No neural foraminal stenosis or central ca nal stenosis. The spinal cord signal intensity is normal. There is a 2 cm nodule in right lung. IMPRESSION: 1. 2 cm nodule in right lung suspicious for primary bronchogenic carcinoma. Noncontrast chest CT is r ecommended. 2. Mild thoracic facet joint osteoarthritis. Reviewed, dictated and finalized at location E. DE SALES ADMINISTRATOR IMPRESSION: 1. 2 cm nodule in right lung suspicious for primary bronchogenic carcinoma. Non contrast chest CT is recommended. 2. Mild thoracic facet joint osteoarthritis.
== END 2023-06-04 16:32 | disposition home or self-care (01) ==
DX: M51.34 Other intervertebral disc degeneration, thoracic region (principal)
CPT/HCPCS: 72146

== ENCOUNTER 2023-06-08 06:40 | Outpatient (CLI) | payer OTHER, SELFPAY ==
--- NOTE | ~2023-06-08 | CT_ITS ---
CT Scan of the Chest without Contrast: Clinical Indication: Solitary pulmonary nodule Technique: Contiguous sections were acquired throughout the chest without intravenous contrast. Dose reduction technique was used on this scan by utilizing automated exposure control and iterative recon struction technique. The dose-length product (DLP) was 98.03 mGy-cm. Findings: There is no evidence of any significant mediastinal, hilar or axillary lymphadenopathy. The mediastin al soft tissues appear normal. There is no evidence of pleural or pericardial effusion. Several calcified granulomas are present, including a very large calcified granuloma at the superior segment right lower lobe. Images through the upper abdomen reveal no abnormalities. Impression: Calcified granulomas, as above, benign. No suspicious pulmonary nodule seen. Reviewed, dictated and finalized at [facility]. CONTROL TECHNICIAN Impression: Calcified granulomas, as above, benign. No suspicious pulmonary nodule seen.
== END 2023-06-08 06:41 | disposition home or self-care (01) ==
LOC: ANHIMG 06:41
PROVIDERS: Visit Provider Nurse Practitioner
DX: R91.1 Solitary pulmonary nodule (principal)
CPT/HCPCS: 71250

== ENCOUNTER 2024-02-14 06:50 | Outpatient (CLI) | payer OTHER, SELFPAY ==
--- NOTE | ~2024-02-14 | CT_ITS ---
CT diagnostic chest wo con Ordering provider: RANJIT Rodriguez History: 43 years Female with . R91.1 - Solitary pulmonary nodule . Comparison: June 08, 2023 Technique: CT chest without IV contrast. Radiation reduction technique utilized. DLP is 69.44 mGy-cm. FINDINGS: VISUALIZED THORACIC INLET: Normal. MEDIASTINUM: Aorta/coronary arteries: The thoracic aorta is normal. Ascending aorta measures 3.2 cm. Heart/other: The heart is not enlarged. Lymph nodes: No mediastinal or hilar adenopathy. Calcified bilateral hilar lymph nodes. LUNGS: Calcified Granulomas seen in the right upper lobe laterally measuring 3.8 mm. Calcified granulomas again demonstrated in the superior segment of the right lower lobe unchanged fro m previous examination. Tiny nodule is seen in the left lower lobe laterally measuring 2 mm. No pulmonary masses. No infiltrates or effusions. No pneumothorax. VISUALIZED UPPER ABDOMEN: Normal visualized upper abdomen. MUSCULOSKELETAL: Soft tissues: The superficial soft tissues are normal. Bones: Normal spine. IMPRESSION: 1. Calcified granulomas are unchanged from previous examination. 2. 2-3 mm nodule in the left lower lobe 12 months follow-up advised. Reviewed, dictated and finalized at location A.
== END 2024-02-14 06:51 | disposition home or self-care (01) ==
PROVIDERS: PCP Family Medicine; Visit Provider Nurse Practitioner
DX: R91.1 Solitary pulmonary nodule (principal)
CPT/HCPCS: 71250

== ENCOUNTER 2024-04-30 15:36 | Outpatient (CLI) | payer OTHER, SELFPAY ==
--- NOTE | ~2024-04-30 | US_ITS ---
EXAMINATION: US transvaginal DATE: 04/30/2024 16:17 INDICATION: Menorrhagia TECHNIQUE: Multiple endovaginal sonographic images of the pelvis were obtained. COMPARISON: 03/14/2022 FINDINGS: Uterus: 9.1 x 4.7 x 4.8 cm. Retroflexed. 8 mm echogenic focus within the endometrium, likely represen ting clot. Multiple cervical cysts, simple in morphology, likely representing multiple nabothian cyst s. Endometrial complex measures 10 mm. Right Ovary: 2.6 x 1.9 x 2.3 cm. Vascular flow is present. Left Ovary: 3.6 x 1.3 x 2.3 cm. Vascular flow is present. There is no free fluid in the pelvis. IMPRESSION: Normal pelvic sonogram findings. Reviewed, dictated and finalized at location K.
== END 2024-04-30 15:37 | disposition home or self-care (01) ==
LOC: MICIMG 15:37
PROVIDERS: PCP Family Medicine; Visit Provider Obstetrics & Gynecology Gynecology
DX: N92.0 Excessive and frequent menstruation with regular cycle (principal)
CPT/HCPCS: 76830

== ENCOUNTER 2024-05-03 10:44 | Outpatient (CLI) | payer OTHER, SELFPAY ==
--- NOTE | ~2024-05-03 | MM_ITS ---
EXAMINATION: MM screening dian BI w zenobia HISTORY: Screening TECHNIQUE: Craniocaudal and mediolateral oblique 3-D tomosynthesis images were obtained and synthetic 2-D images were generated. CAD analysis was submitted and interpreted. COMPARISON: Comparison to multiple prior studies sequentially, with oldest reviewed study dated 11/22. BREAST PARENCHYMAL COMPOSITION: Not dense: There are scattered areas of fibroglandular density. FINDINGS: There is no evidence of suspicious mass, calcification, or architectural distortion to sugg est malignancy in either breast. There has been no suspicious interval change. IMPRESSION: 1. No mammographic evidence of malignancy. 2. Recommend routine screening mammography in one year. BI-RADS Category 1: Negative Reviewed, dictated and finalized at location B. L RIVETER
== END 2024-05-03 10:45 | disposition home or self-care (01) ==
PROVIDERS: PCP Family Medicine; Visit Provider Nurse Practitioner
DX: Z12.31 Encounter for screening mammogram for malignant neoplasm of breast (principal)
CPT/HCPCS: 77063; 77067

== ENCOUNTER 2025-04-30 08:45 | Outpatient (CLI) | payer OTHER, SELFPAY ==
--- NOTE | ~2025-04-30 | US_ITS ---
Clinical history:Right posterior neck lump since December 2024. EXAM:Ultrasound soft tissues head and neck TECHNIQUE:Multiple static grayscale images and color Doppler images were obtained of the area of palpable concern along the right posterior neck Comparisons:None available FINDINGS: There is a 0.6 x 0.6 x 0.3 cm wider than tall hypoechoic mass in the area of palpable concern along the right posterior neck. The finding is wider than tall. There is color Doppler flow. No posterior acoustic shadowing. IMPRESSION: 1. There is a 0.6 cm mass in the area of palpable concern along the right posterior neck. Recommend follow-up to resolution. Consider a CT of the soft tissues of the neck with contrast for further assessment. Reviewed, dictated and finalized at location Q. IMPRESSION: 1. There is a 0.6 cm mass in the area of palpable concern along the right poste rior neck. Recommend follow-up to resolution. Consider a CT of the soft tissues of the neck with contrast for further assessment.
== END 2025-04-30 08:46 | disposition home or self-care (01) ==
LOC: GOSHIMG 08:46
PROVIDERS: PCP Family Medicine; Visit Provider Family Medicine
DX: R22.1 Localized swelling, mass and lump, neck (principal)
CPT/HCPCS: 76536

== ENCOUNTER 2025-05-15 08:10 | Outpatient (CLI) | payer OTHER, SELFPAY ==
--- NOTE | ~2025-05-15 | CT_ITS ---
EXAM/PROCEDURE: CT soft tissue neck wo con HISTORY: R22.1 - Localized swelling, mass and lump, neck COMPARISON: None available. TECHNIQUE: Noncontrast soft tissue neck CT FINDINGS: A BB marker is placed along the skin surface along the right lateral neck approximately 6 cm below and just posterior to the lower margin of the ear. In close proximity to this marker small number of nonpathologic sized lymph nodes, with the largest measuring 9 x 7 x 5 mm. Similar slightly smaller lymph nodes/nodules are present in the same location on the left side. Scattered nonpathologic sized bilateral jugulodigastric posterior triangle, occipital and submandibular lymph nodes are also noted. Slight strandy changes present in the subcutaneous soft tissues on both sides of the lateral neck. No discretely defined mass or drainable fluid collection. No acute process seen in the intracranial contents or visualized portions of the upper chest. Thyroid appears normal. Bones appear intact. Parapharyngeal, retropharyngeal and carotid spaces appear symmetric. Fossa Rosenmuller are symmetric. Minimal right maxillary sinus mucoperiosteal thickening present. IMPRESSION: Several scattered nonpathologic sized lymph nodes some of which correspond to area of palpable concern in the lateral right neck. Correlate with follow-up clinical presentation and exam; if symptoms worsen or garcia improved, consider soft tissue neck CT examination with contrast for additional evaluation. Reviewed, dictated and finalized at location A. LITY COORDINATOR IMPRESSION: Several scattered nonpathologic sized lymph nodes some of which correspond to a darius of palpable concern in the lateral right neck. Correlate with follow-up cli nical presentation and exam; if symptoms worsen or garcia improved, consider so ft tissue neck CT examination with contrast for additional evaluation.
== END 2025-05-15 08:11 | disposition home or self-care (01) ==
LOC: MICIMG 08:11
PROVIDERS: PCP Family Medicine; Visit Provider Family Medicine
DX: R22.1 Localized swelling, mass and lump, neck (principal)
CPT/HCPCS: 70490

== ENCOUNTER 2025-05-20 06:34 | Outpatient (CLI) | payer OTHER, SELFPAY ==
--- NOTE | ~2025-05-20 | CT_ITS ---
EXAMINATION:CT chest high resolution wo nd DATE: 05/20/2025 07:08 INDICATION: Lung nodule TECHNIQUE: Computed tomography (CT) of the chest was performed without intravenous contrast. The dose-length product (DLP) was 167.95 mGy-cm. COMPARISON: February 14, 2024 FINDINGS: Calcified right lung granulomas, and tiny subpleural nodules in the left lung left lower lobe image 86 series 4 and image 96 series 4 unchanged. No acute intrathoracic process. Heart and great vessels normal in size. No acute process seen in the visualized portions of the upper abdomen extrathoracic soft tissues or bony thorax. Mild degenerative changes in the thoracic spine. Minimal bibasilar fibrotic and/or atelectatic changes present but no significant interstitial lung disease. IMPRESSION: 1. Radiographically benign lung nodules. No additional surveillance required for these nodules. 2. Other findings as above. Reviewed, dictated and finalized at location A. S OPERATIONS DIRECTOR IMPRESSION: 1. Radiographically benign lung nodules. No additional surveillance required fo r these nodules. 2. Other findings as above.
== END 2025-05-20 06:35 | disposition home or self-care (01) ==
PROVIDERS: PCP Family Medicine; Visit Provider Family Medicine
DX: R91.1 Solitary pulmonary nodule (principal); R91.8 Other nonspecific abnormal finding of lung field
CPT/HCPCS: 71250

== ENCOUNTER 2025-06-24 10:21 | Emergency (ER) | payer OTHER, SELFPAY ==
[2025-06-24 10:36] VITALS: BP 152/99; PULSE 100; RESP 16; TEMP 36.6; O2SAT 100
--- NOTE | 2025-06-24 11:00 | ED.BACK ---
HPI - Back Pain/Injury General Chief Complaint: Abdominal Pain Stated Complaint: Lower back/Pelvic Pain Source: patient and RN notes reviewed Mode of arrival: ambulatory Limitations: no limitations History of Present Illness HPI Narrative: 44 y/o female presented for c/o right lower abdominal pain. Onset 3 weeks. Described as sharp and intermittent. At times radiates down right leg. Endorses at onset it started at right medial/lower back. Endorses associated intermittent diarrhea. Denies vaginal bleeding, urinary changes, n/v/f/c. Taking muscle relaxer and ibuprofen. Denies aggravating or alleviating factors. Related Data Home Medications ?Medication ?Instructions ?Recorded ?Confirmed ?Last Taken ?Type cholecalciferol (vitamin D3) 1,250 1,250 mcg PO WEEKLY 02/17/20 06/24/25 Unknown History mcg (50,000 unit) capsule valacyclovir 500 mg tablet mg PO 04/13/23 04/30/25 Unknown History norgestimate 0.18 mg/0.215mg/0.25 1 tablet PO Q24H 04/30/25 06/24/25 Unknown History mg-ethinyl estradiol 0.025 mg tablet (Dzh-Ks-Yanmfxdus) Allergies Allergy/AdvReac Type Severity Reaction Status Date / Time trimethoprim Allergy Intermediate RASH Verified 06/24/25 10:40 iodine Allergy Mild Itching Verified 06/24/25 10:40 sulfamethizole Allergy Unknown Skin Verified 06/24/25 10:40 Reaction Contrast Media Allergy Mild ITCHING Uncoded 04/30/25 08:23 Review of Systems Review of Systems: CONSTITUTIONAL: Denies body aches, fever, chills ENT: Denies rhinorrhea, congestion CARDIOVASCULAR: Denies chest pain, palpitations, or edema. RESPIRATORY: Denies cough or dyspnea. GASTROINTESTINAL: Endorses abdominal pain, Denies nausea, vomiting, diarrhea, hematochezia, melena, hematemesis GENITOURINARY: Denies dysuria, hematuria, or CVA tenderness. SKIN: Denies rash MUSCULOSKELETAL: Denies back pain, joint pain, or myalgia. NEUROLOGIC: Denies headache, numbness, tingling, or weakness. All systems reviewed & are unremarkable except as noted in HPI and below PMFSH Past Medical History Medical History Fibromyalgia Depression 2007 PCOS (polycystic ovarian syndrome) Hypothyroidism Migraine Surgical History Surgical History History of lumbar discectomy Hx of LASIK History of tonsillectomy History of hand surgery History of surgical removal of ganglion cyst History of bunionectomy History of section Social History Social History Smoking status: Never smoker Alcohol intake: never Substance use: never Substance use type: does not use Lack of Transportation: No Lack of Food: Never True Current Housing: I Have Housing Concerned About Future Housing: No Difficulty Paying Gas/Electric Bills: No Difficulty Paying for Meds: No Currently Unemployed: No Education: Bachelor's Degree Difficulty w/ Childcare or Family Care: No Living arrangements: with family Occupation/Education: occupation Gender identity (if verbalized by the patient): Female Spiritual care concerns: No Agree to blood products: Yes Comments At time of signature, I have reviewed and agree with nursing past medical, surgical, social and family history unless otherwise noted. Please see nursing chart for further information. There is no relevant family history pertinent to the presenting complaint Exam Narrative: GENERAL: Well-appearing, and in no acute distress. EYES: EOMI. Conjunctivae normal. ENT: Mucous membranes pink and moist. CHEST: No respiratory distress. Clear to auscultation. HEART: Regular rate and rhythm. No murmur appreciated. Normal peripheral pulses. ABDOMEN: abd soft, nondistended, normal active bowel sounds. No CVA tenderness. Tender abdomen RLQ; No guarding, rebound tenderness, asymmetry SKIN: Warm, dry, no rash. Capillary refill normal. Normal skin turgor. NEURO: No focal deficits. Alert and oriented x3. PSYCH: Normal affect. Course Course Level of Care: Express Care Visit Vital Signs Vital signs: Vital Signs Temperature 97.8 F 06/24/25 10:36 Pulse Rate 100 06/24/25 10:36 Respiratory Rate 16 06/24/25 10:36 Blood Pressure 152/99 H 06/24/25 10:36 Pulse Oximetry 100 06/24/25 10:36 Temperature 97.8 F 06/24/25 10:36 Pulse Rate 100 06/24/25 10:36 Respiratory Rate 16 06/24/25 10:36 Blood Pressure 152/99 H 06/24/25 10:36 Pulse Oximetry 100 06/24/25 10:36 MDM MDM Narrative Medical decision making narrative: Discussed physical exam findings; RLQ. And reviewed possible etiologies including ovarian torsion given hx pcos and risk for infertility. Advised ER transfer for further evaluation. States she does not want to go to the ER at this time 'because it is a randolph dish.' Currently nontoxic and vss. Signed AMA The patient is AA&Ox3, free from distracting injury. The patient has demonstrated concrete thinking/reasoning, has maintained an chuck wagon cook/reasonable conversation, appears to have intact insight/judgment/reason and therefore has capacity to make decisions. Given the patients presentation, we communicated our concern for RLQ pain in laymans terms. The patient verbalized an understanding. The patient is aware the evaluation is incomplete & many troublesome conditions have not been r/o. We have discussed the need for further ED w/u. We have discussed the range of possible dx, potential testing & treatment options. Weve made efforts to prevent the pt from leaving AMA. Our discussions included the potential outcomes of leaving AMA, including worsening of their condition, becoming permanently disabled/in pain/critically ill, or . Despite these efforts, we were unable to convince the pt to go to the ER. We have attempted to offer tx/rx/guidance for any dangerous conditions which are most likely and/or dangerous. We have answered all questions and have implored the patient to go to ER [facility] to complete the w/u. A staff member witnessed the patient consenting to AMA. Differential Diagnosis Differential Diagnosis: appendicitis, peritonitis, AAA, crohn's, diverticulitis, hernia, ischemic colitis, mesenteric ischemia, endometriosis, mittelscmerz, ovarian cyst/torsion, PID, renal colic Discharge Plan Discharge Clinical Impression: Abdominal pain, right lower quadrant Patient Disposition: Left Against Medical Advice Condition: Stable Patient Language: Polish Prescriptions: No Action valacyclovir 500 mg tablet PO cholecalciferol (vitamin D3) 1,250 mcg (50,000 unit) capsule 1,250 mcg PO WEEKLY norgestimate-ethinyl estradiol [Pfm-Bb-Yhfyiuybl] 0.18/0.215/0.25 mg-0.025 mg tablet 1 tablet PO Q24H ferrous sulfate 324 mg (65 mg iron) tablet,delayed release (DR/EC) 324 mg PO BID Qty: 180 1RF cyclobenzaprine 5 mg tablet See Rx Instructions .ROUTE .COMPLEX Qty: 60 1RF Dose Instruction: TAKE 1 TABLET BY MOUTH EVERY DAY AT BEDTIME NEEDED FOR MUSCLE SPASM Rx Instructions: TAKE 1 TABLET BY MOUTH EVERY DAY AT BEDTIME NEEDED FOR MUSCLE SPASM levothyroxine 125 mcg tablet See Rx Instructions .ROUTE .COMPLEX Qty: 90 1RF Dose Instruction: TAKE 1 TABLET BY MOUTH DAILY Rx Instructions: TAKE 1 TABLET BY MOUTH DAILY gabapentin 300 mg capsule 300 mg PO QHS Qty: 90 1RF dextroamphetamine-amphetamine 15 mg capsule,extended release 24hr 15 mg PO QAM Qty: 30 0RF Follow-up/Referrals: Nahomy Rodriguez DO [Primary Care Provider, [facility]] Time of Disposition: 11:13
== END 2025-06-24 11:17 | disposition left against medical advice (07) ==
PROVIDERS: Emergency Provider Nurse Practitioner Family; PCP Family Medicine
DX: R10.31 Right lower quadrant pain (principal); E28.2 Polycystic ovarian syndrome; E03.9 Hypothyroidism, unspecified; M79.7 Fibromyalgia
CPT/HCPCS: 99211; G0463

== ENCOUNTER 2025-06-26 10:39 | Emergency (ER) | payer OTHER, SELFPAY ==
--- OUTSIDE RECORDS SUMMARY | 2024-03-13 11:30 | XMS_ITS ---
Author Organization [facility] ([address]) Address [address] [place] [address] Care Team Providers Care Senior Dentist Name Role Phone MichaelNahomy Primary Care Provider Dr. John Saunders Unavailable [phone] REASON FOR VISIT Botox Only Medications Medication SIG (Take, Route, Frequency, Duration) Notes Start Date End Date Status Levothyroxine Sodium 88 MCG 1 tab(s) orally once a day; Duration: 30 day(s) Active Qulipta 60 MG 1 tab(s) orally once a day; Duration: 30 day(s) 11/01/2023 Active rOPINIRole HCl 1 MG 1 tab(s) orally qHS; Duration: 30 days Not-Taking EMGALITY PREFILLED PEN GNLM 120 MG/ML 1 INJECTION DIRECTED SUBCUTANEOUSLY ONCE A MONTH; Duration: 30 DAYS *Please review for potential replacement for e-prescription and drug interaction check* Not-Taking Zavzpret 10 MG 1 SPRAY INTRANASALLY ONCE DAILY, NO REPEAT DOSE; Duration: 30 DAYS *Please review and pick correct strength-formula tion from [employer] options. If intended option is not shown, discontinue and re-order from Quick Search* 12/13/2023 Active Vitamin D3 1250 MCG 1 CAP(S) ORALLY ONCE A WEEK 48883 IU weekly *Please review and pick correct strength-formula tion from [employer] options. If intended option is not shown, discontinue and re-order from Quick Search* Active Adderall XR 10 MG 1 cap(s) orally once a day (in the morning) Active Modafinil 100 MG 1 tab(s) orally once a day (in the morning) Not-Taking Ferrous Sulfate 325 (65 Fe) MG 1 tab(s) orally 2 times a day; Duration: 30 days Active Encounters Encounter Location Date Provider Diagnosis [facility] [address] [place] [address] 03/13/2024 John Reveles Chronic migraine without aura, not intractable, without status migrainosus G43.709 Assessments Encounter Date Diagnosis (ICD Code) Assessment Notes Treatment Notes Treatment Clinical Notes Section Notes 03/13/2024 Chronic migraine without aura, not intractable, without status migrainosus (ICD-10 - G43.709) Plan Of Treatment Next Appt Details Follow Up: 3 Months, Reason: Toxin injection Progress Notes * Jonathon PABLOOB:[birth year] (44 yo F)Acc No.[id number]:03/13/2024 Progress Notes Patient: Luli ESPINAL Provider: Ronaldo Reveles MD :1980 A ge:43 Y S ex:Female Date:03/13/2024 Address:[address] Pcp:Nahomy Rodriguez Subjective: * Chief Complaints: * 1 . Botox Only. * HPI: * Headache: Last injection on 12/13/23: Procerus 5 Units, Psychiatric Assistant (Left) 5 Units, Psychiatric Assistant (Right) 5 Units, Frontalis (Left) 12.5 Units, Frontalis (Right) 12.5 Units, Temporalis (Left) 30 Units, Temporalis (Right) 30 Units, Occipitalis (Left) 25 Units, Occipitalis (Right) 25 Units, Cervical Paraspinal (Left) 10 Units, Cervical Paraspinal (Right) 10 Units, Trapezius (Left) 15 Units, Trapezius (Right) 15 Units -Current abortive therapy: Zavzpret NS (sample was effective, but PA was denied) -Previous failed abortive therapy: Sumatriptan (Imitrex), Rizatriptan (Maxalt), Ubrogepant (Ubrelvy), Rimegepant (Nurtec) - ineffective -Current preventive therapy: Botox, Qulipta 60 mg -Previous failed preventive therapy: Gabapentin (previously took this a few years ago for low back pain for several months but it did not help her migraines), Duloxetine (previously took this to treat fibromyalgia, took it for about 1 year, did not help migraines, this was back about 3 years), Topamax (took for > 2 months about 3 years ago, had inadequate effect) Baseline Headache/Migraine Frequency (prior to Botox) ( days/month): 2 01-26/ Current Headache/Migraine Frequency ( days/month):. * Medical History: * Medications: T aking Vitamin D3 1250 MCG CAPSULE 1 CAP(S) ORALLY ONCE A WEEK , Notes to Pharmacist: 43011 IU weekly *Please review and pick correct strength-formulation from [employer] options. If intended option is not shown, discontinue and re-order from Quick Search*, Taking Adderall XR 10 MG Capsule Extended Release 24 Hour 1 cap(s) orally once a day (in the morning) , Taking Ferrous Sulfate 325 (65 Fe) MG Tablet 1 tab(s) orally 2 times a day , Taking Levothyroxine Sodium 88 MCG Tablet 1 tab(s) orally once a day , Taking Qulipta 60 MG Tablet 1 tab(s) orally once a day , Taking Zavzpret 10 MG SPRAY 1 SPRAY INTRANASALLY ONCE DAILY, NO REPEAT DOSE , Notes to Pharmacist: *Please review and pick correct strength-formulation from [employer] options. If intended option is not shown, discontinue and re-order from Quick Search*, Not-Taking/PRN Modafinil 100 MG Tablet 1 tab(s) orally once a day (in the morning) , Not-Taking/PRN rOPINIRole HCl 1 MG Tablet 1 tab(s) orally qHS , Not-Taking/PRN EMGALITY PREFILLED PEN GNLM 120 MG/ML SOLUTION 1 INJECTION DIRECTED SUBCUTANEOUSLY ONCE A MONTH , Notes to Pharmacist: *Please review for potential replacement for e-prescription and drug interaction check* Objective: * Vitals: Assessment: * Assessment: 1. C hronic migraine without aura, not intractable, without status migrainosus - G43.709 (Primary) Plan: * Treatment: * Procedure Codes: 6 4615 CHEMODENERV MUSC MIGRAINE, J0585 BOTULINUM TOXIN TYPE A PER UNIT, J0585 BOTULINUM TOXIN TYPE A PER UNIT, Modifiers: JW * Follow Up: 3 Months (Reason: Toxin injection) * Billing Information: * Visit Code: * Procedure Codes: 45716 CHEMODENERV MUSC MIGRAINE. J0585 BOTULINUM TOXIN TYPE A PER UNIT. J0585 BOTULINUM TOXIN TYPE A PER UNIT. Modifiers: JW * Electronic signature of Dr. John Reveles MD on 06/26/2025 at 10:41 AM QUALITY ASSURANCE ASSOCIATE Sign off status: Pending * Provider: Ronaldo Reveles MD Date: 0 03/13/2024 Generated for Printi ng/Faxing/eTransmitting on: 1 08/27/2024 10:41 AM QUALITY ASSURANCE ASSOCIATE History and Physical Notes * HPI (History of Present Illness) Category Sub-Category Detail Notes Category Not es *Headache Last injection on 12/13/23: Procerus 5 Units, Psychiatric Assistant (Left) 5 Units, Psychiatric Assistant (Right) 5 Units, Frontalis (Left) 12.5 Units, Frontalis (Right) 12.5 Units, Temporalis (Left) 30 Units, Temporalis (Right) 30 Units, Occipitalis (Left) 25 Units, Occipitalis (Right) 25 Units, Cervical Paraspinal (Left) 10 Units, Cervical Paraspinal (Right) 10 Units, Trapezius (Left) 15 Units, Trapezius (Right) 15 Units -Current abortive therapy: Zavzpret NS (sample was effective, but PA was denied) -Previous failed abortive therapy: Sumatriptan (Imitrex), Rizatriptan (Maxalt), Ubrogepant (Ubrelvy), Rimegepant (Nurtec) - ineffective -Current preventive therapy: Botox, Qulipta 60 mg -Previous failed preventive therapy: Gabapentin (previously took this a few years ago for low back pain for several months but it did not help her migraines), Duloxetine (previously took this to treat fibromyalgia, took it for about 1 year, did not help migraines, this was back about 3 years), Topamax (took for > 2 months about 3 years ago, had inadequate effect) Baseline Headache/Migraine Frequency (prior to Botox) (days/month): / Current Headache/Migraine Frequency (days/month):
--- OUTSIDE RECORDS SUMMARY | 2024-06-13 04:59 | XMS_ITS | Continuity of Care Document ---
Author Organization [facility] Address [address] [address] [place] [address] Phone Care Team Providers Care Credit And Collections Analyst Name Role Phone Vishal OD OD, Jessica Unavailable Unavai lable Allergies, Adverse Reactions, Alerts Substance Reaction Status Criticality trimethoprim Active No Information sulfamethoxazole Active No Informat ion Active No Information Medications Medication Instructions Dosage Effective Dates (start - stop) Status Comments Xiidra 5% Ophthalmic Solution OPHTHALMIC VIAL 1 gtt BID OU- PA approved - Active Ortho Tri-Cyclen LO (28) 0.18 mg/0.215 mg/0.25 mg-25 mcg tablet take 1 tablet by oral route every day - Active spironolactone 25 mg tablet take 1 tablet by oral route every day 25 MG - Active Tirosint 25 mcg capsule take 1 capsule b y oral route every day 25 MCG - Active Vitamin D3 1,000 unit capsule - Active Procedures Procedure Date OFFICE/OUTPATIENT VISIT, EST OFFICE/OUTPATIENT VISIT, EST POSTOP FOLLOW-UP VISIT OFFICE/OUTPATIENT VISIT, EST OFFICE/OUTPATIENT VISIT, NEW OPHTHALMIC BIOMETRY OPHTHALMIC BIOMETRY MICROFLUID MARY TEARS MICROFLUID MARY TEARS DILATED EXAM RIGHT EYE DILATED EXAM LEFT EYE REFRACTION Advance Directives Directive Yes / No Effective Date File Name No Information Encounters Encounter Description Practice Location Reason(s) For Visit Diagnoses Date Provider Providers Copied on Encounter [facility], [address] [address], [place], [place], [id number], tel:[phone] OPH CONSULT KALEB DOMINGUEZ No Information 4 Derheimer OD Jessica. [address], [address], [place], [place], [id number], [place]. tel:[phone] [facility], [address] [place] [address], [id number], tel:[phone] OPH CONSULT KALEB DOMINGUEZ No Information 4 Derheimer OD Jessica. [address], [address], [place], [place], [id number], [place]. tel:[phone] OFFICE/OUTPA TIENT VISIT, [facility], [address] [place] [address], [id number], tel:[phone] OPH CONSULT KALEB DOMINGUEZ swollen eyelid (chief complaint) Edema of left eyelid 0 Ariel Sotero. [address] [place] [address], [address] [place] [address], [id number], [place]. tel:[phone] Referring Provider: Wang Lincoln, [address], [place], [address] . tel:[phone] OFFICE/OUTPA TIENT VISIT, [facility], [address] [place] [address], [id number], tel:[phone] OPH CONSULT KALEB DOMINGUEZ dryness (chief complaint) S/P LASIK (laser assisted in situ keratomileusis )Keratoconjunc tivitis sicca, not specified as Sj g phan's, bilateralOther vitreous opacities, bilateral Oct-0 9 Derheimer OD Jessica. [address], [address] [place] [address], [id number], [place]. tel:[phone] Referring Provider: Wang Lincoln, [address], [place], [address] . tel:[phone] [facility], [address] [place] [address], [id number], tel:[phone] OPH CONSULT KALEB DOMINGUEZ decreased VA (chief complaint) S/P LASIK (laser assisted in situ keratomileusis )Superficial punctate keratitis of left eye 7 Estrada Piña. [address], [address], [place], [place], [id number], [place]. tel:[phone] Referring Provider: Wang Lincoln, [address], [place], [address] . tel:[phone] OFFICE/OUTPA TIENT VISIT, [facility], [address] [place] [address], [id number], tel:[phone] OPH CONSULT KALEB DOMINGUEZ vision is improved OU (chief complaint) No Information 7 Kaylen Castellon. [address], [address], [place], [place], [id number], [place]. tel:[phone] Referring Provider: Ravinder Abdullahi MD P, [address], [place], [address] . tel:[phone] OFFICE/OUTPA TIENT VISIT, [facility], [address] [place] [address], [id number], tel:[phone] OPH CONSULT KALEB DOMINGUEZ LASIK eval (chief complaint) Keratoconjunct sicca, not specified as Sjogren's, bilateralSquam ous blepharitis right upper eyelidSquamous blepharitis right lower eyelidSquamous blepharitis left upper eyelidSquamous blepharitis left lower eyelidOther vitreous opacities, bilateralPoste rior subcapsular polar age-related cataract, bilateral Oct- 7 Kaylen Castellon. [address], [address], [place], [place], [id number], [place]. tel:[phone] Referring Provider: Ravinder Fontana, [address], [place], [address] . tel:[phone] Family History Family Member Type Diagnosis Age At Onset Problem (finding) No family history of Di abetes mellitus Problem (finding) No family hist ory of Macular degeneration Problem (finding) No family history of Gl aucoma Problem (finding) No family history of Hy pertension Payers Payer name Insurance type Covered constitution party ID Authorganga mcmanus(s) [facility] [id number] Social History Type Description Quantity Date Captured Comments Sex Female Smoking Status No Information Chief Complaint And Reason For Visit No Information Reason For Referral Reason For Referral No Information History Of Present Illness Encounter Date Complaint History Of Prese nt Illness swollen eyelid The 38 year old female presents for evaluation of swollen eyelid in the RADHA. It started about 1 day(s) ago. It occurs in the morning. The onset was upon awakening. The symptom is constant. The condition is significant. Patient states that she woke up this morning and her eye lid was very swollen. Not sore to the touch. not eye redness. dryness The 38 year old female presents for evaluation of dryness. Pt reports that her vision is stable in both eyes. Pt reports that her eyes have been gradually getting sawdust drier of the last couple of months. Pt is using AT every hour while awake. Pt is not using PF ATs. Pt is using Xiidra BID OU. Pt reports over the last months she has noticed her floaters are coming back in both eyes. No flashes of lights. S/P Lasik OU 2017 by Kaylen decreased VA The 36 year old female presents for evaluation of decreased VA in the left eye. It started about 1 day(s) ago. It affects both near and far vision. The symptom is constant. The condition is significant. Pt C/O sudden decreased VA in OS upon wakening today. S/P PRK OU about 2 weeks ago. Pt denies any discomfort but has been using Refresh several times today along with Xiidra this A.M. vision is improved vision is imp roved OU LASIK eval Patient presents for LASIK Eval OU per Ekta Wing. Patient complains of blurry vision without glasses. She hasn't worn any contacts in over a month. Patient states that she can not wear her CTLs any more because she can't read with them in. She also states that she hates wearing glasses.TOTS:296/297 Functional Status Date Functional Assessmen t No Information Instructions Date Instruction Additional Infor kay Impression/Plan Related to Edema of left eyelid RTO 1 year Related to Other vitreous opacities, bilateral Impression/Plan Related to S/P L ASIK (laser assisted in situ keratomileusis) Impression/Plan Related to Kerat oconjunctivitis sicca, not specified as Sj g phan's, bilateral Impression/Plan Related to Other vitreous opacities, bilateral Follow up - RTO PRN Impression/Plan - Po st op instructions reviewed.- flaps clear OU Continue AT's often for releif.RTO as scheduled. Related to S/P LASIK (laser assisted in situ keratomileusis) Impression/Plan - Re commend gel tears and AT's often to releive symptoms. If NI in symptoms in 1-2 days pt should f/u with PRK surgeon. Related to Superficial punctate keratitis of left eye Impression/Plan - Di scussed diagnosis in detail with patient. Discussed treatment options with patient. Lid scrubs and hygiene were explained. Patient instructed to apply warm compresses. Will continue to observe condition and or symptoms. Related to Squamous blepharitis left lower eyelid Impression/Plan - Di scussed diagnosis in detail with patient. Discussed treatment options with patient. Lid scrubs and hygiene were explained. Patient instructed to apply warm compresses. Will continue to observe condition and or symptoms. Related to Squamous blepharitis left upper eyelid Impression/Plan - Di scussed diagnosis in detail with patient. Discussed treatment options with patient. Lid scrubs and hygiene were explained. Patient instructed to apply warm compresses. Will continue to observe condition and or symptoms. Related to Squamous blepharitis right lower eyelid Impression/Plan - Di scussed diagnosis in detail with patient. No treatment is required at this time. Will continue to observe condition and or symptoms. Call if VA worsens or sudden onset of dozens of floaters with flashes of light. Educational materials provided:Flashers/floaters. Related to Other vitreous opacities, bilateral Impression/Plan - Di scussed diagnosis in detail with patient. Discussed treatment options with patient. Lid scrubs and hygiene were explained. Patient instructed to apply warm compresses. Will continue to observe condition and or symptoms. Related to Squamous blepharitis right upper eyelid Impression/Plan - Di scussed diagnosis in detail with patient. Discussed treatment options with patient. Patient instructed to use artificial tears as needed. Will continue to observe condition and or symptoms.Start Xiidra 1 gtt BID OU befores surgery. Coupon given today. Related to Keratoconjunct sicca, not specified as Sjogren's, bilateral Impression/Plan - Di scussed diagnosis in detail with patient. No treatment is required at this time. Will continue to observe condition and or symptoms.Patient Scheduled Lasik today. Related to Posterior subcapsular polar age-related cataract, bilateral Assessments Type Assessment Date No Information Patient Care Teams Name Effective Dates (start - stop) Status Members No Information
--- OUTSIDE RECORDS SUMMARY | 2025-02-19 11:30 | XMS_ITS ---
Author Organization [facility] ([address]) Address [address] [place] [address] Care Team Providers Care Director Validation Name Role Phone Nahomy Rodriguez Primary Care Provider UnavailDr. John Garrett Unavailable [phone] Livier Michelle Unavailable [phone] REASON FOR VISIT Botox BB Follow Up Encounters Encounter Location Date Provider Diagnosis [facility] [address] [place] [address] 02/19/2025 Livier Michelle Plan Of Treatment No Information Progress Notes * Jonathon PABLOOB:[birth year] (44 yo F)Acc No.[id number]:02/19/2025 Progress Notes Patient: Luli ESPINAL Provider: Kim Michelle APRN :1980 A ge:44 Y S ex:Female Date:02/19/2025 Address:[address], [place], [facility] Pcp:Nahomy Rodrigeuz Subjective: * Chief Complaints: * 1 . Botox BB Follow Up. * Medical History: Objective: * Vitals: Assessment: Plan: * Treatment: * Billing Information: * Visit Code: * Procedure Codes: * Electronic signature of NHI Eldridge on 06/26/2025 at 10:40 AM GLUE BONE DRIER Sign off status: Pending * Provider: Kim Michelle APRN Date: 0 02/19/2025 Generated for Zoë garcía/Kendrick/Alexander on: 1 08/27/2024 10:40 AM GLUE BONE DRIER
--- NOTE | ~2025-06-26 | CT_ITS ---
EXAMINATION: CT abdomen pelvis wo con DATE: 06/26/2025 17:54 INDICATION: Right lower quadrant pain TECHNIQUE: Computed tomography (CT) of the abdomen and pelvis was performed without intravenous contrast. The dose-length product was 526.20 mGy-cm. Automated exposure control and iterative reconstruction technique were employed. COMPARISON: CT dated 03/14/2022. FINDINGS: Lung bases unremarkable. Heart size normal. No significant pleural or pericardial effusion. The liver, spleen, pancreas, adrenal glands and right kidney are unremarkable. There is a punctate 2 mm nonobstructing left renal stone. No hydronephrosis. Gallbladder is present. Normal appendix. Nono bstructive bowel gas pattern. No significant vascular abnormality. No lymphadenopathy. There is disc narrowing at L5-S1. No acute fracture or traumatic malalignment. IMPRESSION: 1. Nonobstructing left nephrolithiasis. Reviewed, dictated and finalized at location O. HT PHYSICIAN
--- OUTSIDE RECORDS SUMMARY | 2025-06-26 10:40 | XMS_ITS | Clinical Summary ---
Author Organization [facility] Address [address] [facility] [place] [address] Care Team Providers Care Semiautomatic Stitcher Operator Name Role Phone Nahomy Rodriguez DO Primary Care Provider [phone] Source Comments [facility],non-owned Affiliates and Associated Physician Practices is amultiple site organization consisting of ambulatory clinics and hospital sitesin [place], [place], [place] and [place]. This disclosure is being madepursuant to the Care Everywhere program and may not contain all information available regarding this patient. Last updated 18.[facility] Allergies Active Allergy Reactions Criticality Noted Date Comments Sulfamethoxazole W-Trimethoprim Rash Medium 01/30 Contrast-Iodinated Agents Fo r Ct/Other Itching High 03/27/2019 Iodine Itching High 03/27/2019 Sulfa Drugs Rash Medium 02/16/2017 Trimethoprim Other 02/25/2021 Reaction: Unknown, Medications * Be aware that medications may not be up to date on this document. Alwaysverify current medications with the patient. norgestim-eth estrad triphasic (ORTHO TRI-CYCLEN LO) tablet Take 1 tablet by mouth as needed 8 Active vitamin D, ergocalciferol, (DRISDOL) 16881 UNITS capsule Take 1 capsule by mouth every 7 days 8 Active XIIDRA 5 % opthalmic solution 8 Active cyanocobalamin (VITAMIN B-12) injection ADMINISTER 1 ML UNDER THE SKIN EVERY WEEK IN THE MORNING 1 Active cycloSPORINE (RESTASIS) 0.05 % ophthalmic suspension Restasis 0.05 % eye drops in a dropperette Active DULoxetine (CYMBALTA) 30 MG capsule every 24 hours Activ e topiramate (TOPAMAX) 25 MG tablet topiramate 25 mg tablet TAKE 1 TABLET BY MOUTH EVERY DAY Active levothyroxine (TIROSINT) 137 MCG capsule Tirosint 137 mcg capsule take ONE capsule BY MOUTH DAILY IN THE MORNING Active valACYclovir (VALTREX) 1 GM tabletIndication s:Rash and other nonspecific skin eruption Take 2 (two) tablets by mouth every 12 hours 4 tablet 2 1 Active clobetasol (TEMOVATE) 0.05 % ointmentIndicati ons:Rash and other nonspecific skin eruption Apply to rash on ankle twice daily. 30 days supply. 60 g 2 1 Active Active Problems Problem Noted Date Diagnosed Date Rash and other nonspecific skin eruption 021 Dry eyes 10/04/2018 Hypothyroidism 10/04/2018 Xerosis cutis 08/16/2018 Cheilitis 06/14/2018 Acne vulgaris 06/14/2018 Encounter for long-term (current) use of medicat ions 06/14/2018 Immunizations Immunization Administration Dates Next Due INFLUENZA VACCINE 04/14/2018 Family History Medical History Relation Name Comments Asthma Neg Hx CVA Neg Hx Cancer - Breast Neg Hx Cancer - Other Neg Hx Cancer - Skin, Melanoma Neg Hx Cancer - Skin, Non Melanoma Neg Hx Eczema Neg Hx Hemophilia Neg Hx Psoriasis Neg Hx Social History Tobacco Use Types Packs/Day Years Used Date Smoking Tobacco: Never Smokeless Tobacco: Never Comments No Sex and Gender Information Value Date Recorded Sex Assigned at Not on file Legal Sex Female 2:15 PM FORENSIC AUDIT EXPERT Gender Identity Not on file Sexual Orientation Not on file Last Filed Vital Signs Vital Sign Reading Time Taken Comments Blood Pressure 140/88 03/08/2021 5:30 PM CDT Pulse 73 03/08/2021 5:30 PM CDT Temperature 36.7 C (98 F) 03/08/2021 5:30 PM CDT Respiratory Rate 16 03/08/2021 5:30 PM CDT Oxygen Saturation 98% 03/08/2021 5:30 PM CDT Inhaled Oxygen Concentration - - Weight 77.1 kg (170 lb) 03/08/2021 5:30 PM CDT Height 165.1 cm (5' 5) 03/08/2021 5:30 PM CDT Body Mass Index 28.29 03/08/2021 5:30 PM CDT Plan of Treatment Health Maintenance Due Date Last Done Comments MAMMOGRAM 1980 HIV SCREENING 1995 HEPATITIS C SCREENING 08/05/1998 DTAP/TDAP/TD VACCINES (1 - Tdap) 1999 HEPATITIS B VACCINE (1 of 3 - 19+ 3-dose series) 1999 PAP SMEAR 2001 HPV VACCINE (1 - 3-dose SCDM series) 2007 SCREENING FOR DIABETES 03/08/2021 04/27/2016 LIPID TESTING 06/10/2023 06/10/2018, 08/2017, 04/06/2018, Additional history exists DEPRESSION SCREENING 07/02/2024 COVID-19 VACCINE ( season) 2025 12/09/2020, 11/18/2020 INFLUENZA VACCINE (#1) 2025 9, 04/14/2018, 04/13/2017, Additional history exists ZOSTER VACCINE (1 of 2) 2030 HIB VACCINE Aged Out No longer eligi ble based on patient's age to complete this topic MENINGOCOCCAL (Group B) VACCINE SHARED DECISION-MAKING Aged Out No longer eligible based on patient's age to complete this topic MENINGOCOCCAL GROUPS A/C/Y/W VACCINE Aged Out No longer eligible based on patient's age to complete this topic PNEUMOCOCCAL VACCINE Aged Out No long er eligible based on patient's age to complete this topic Procedures Procedure Name Priority Date/Time Associated Diagnosis Comments LIPID PROFILE Routine 06/10/2018 7:40 AM FORENSIC AUDIT EXPERT Medication management COMPREHENSIVE METABOLIC PANEL Routine 04/27/2016 7:40 AM CDT from Last 3 Months or Most Recently Relevant to Health Maintenance Results * (ABNORMAL) LIPID PROFILE (06/10/2018 7:40 AM FORENSIC AUDIT EXPERT) Cholesterol 204(H) 100 - 199 mg/dL [facility] INSURANCE BILL Triglycerides 148 0 - 149 mg/dL [facility] INSURANCE BILL HDL Cholesterol 82 >39 mg/dL [facility] INSURANCE BILL VLDL Calculated 30 5 - 40 mg/dL [facility] INSURANCE BILL LDL Calculated 92 0 - 99 mg/dL [facility] INSURANCE BILL Comment NOT NEEDED [facility] INSURANCE BILL Comment: FASTING Ancillary determined the test is not needed Blood BLOOD SPECIMEN / Unknown 06/10/2018 7:40 AM FORENSIC AUDIT EXPERT 06/10/2018 Narrative Resulting Agency Comment [facility] [address] [facility] [id number] [facility] - CHEMISTRY ORDERABLES F inal Result [facility] INSURANCE BILL [address] [place] [address] * COMPREHENSIVE METABOLIC PANEL (04/27/2016 7:40 AM CDT) Glucose 87 65 - 99 mg/dL [facility] ([facility]) BUN 13 6 - 20 mg/dL [facility] ([facility]) Creatinine 0.74 0.57 - 1.00 mg/dL [facility] ([facility]) eGFR non- 105 >59 mL/min/1.7 3 [facility] ([facility]) eGFR 121 >59 mL/min/1.7 3 [facility] ([facility]) BUN/Creatinine Ratio 18 8 - 20 [facility] ([facility]) Sodium 142 136 - 144 mmol/L [facility] ([facility]) Comment:Please note refere nce interval change Potassium 3.9 3.5 - 5.2 mmol/L [facility] ([facility]) Comment:Please note refere nce interval change Chloride 101 97 - 106 mmol/L [facility] ([facility]) Comment:Please note refere nce interval change CO2 24 18 - 29 mmol/L [facility] ([facility]) Calcium 9.0 8.7 - 10.2 mg/dL [facility] ([facility]) Protein Total 6.4 6.0 - 8.5 g/dL [facility] ([facility]) Albumin 4.1 3.5 - 5.5 g/dL [facility] ([facility]) Globulin Total 2.3 1.5 - 4.5 g/dL [facility] ([facility]) Albumin/Globulin Ratio 1.8 1.1 - 2.5 [facility] ([facility]) Bilirubin Total 0.4 0.0 - 1.2 mg/dL [facility] ([facility]) Alkaline Phosphatase 53 39 - 117 IU/L [facility] ([facility]) AST 14 0 - 40 IU/L [facility] ([facility]) ALT 19 0 - 32 IU/L [facility] ([facility]) Blood specimen (specimen) BLOOD SPECIMEN / Unknown 04/27/2016 7:40 AM CDT 04/27/2016 12:40 PM CDT Narrative [facility] ([facility]) - 04/30/2016 5:06 PM CDT Performed at: - [facility] [address] [place], [place] [id number] Conveyor Feeder: Matt Davison PhD, Phone: [phone] [facility] - CHEMISTRY ORDERABLES E dited Result - Final [facility] ([facility]) [address] [place] [address] from Last 3 Months or Most Recently Relevant to Health Maintenance Insurance [facility] [employer] Care Teams Semiautomatic Stitcher Operator Relationship Specialty Start Date End Date Nahomy Rodriguez DO [address] [place] [address] PCP - General Family Medicine 03/08/21
--- OUTSIDE RECORDS SUMMARY | 2025-06-26 10:40 | XMS_ITS | Patient Health Record ---
Author Organization [facility]ly [facility] [employer] [place] ([address]) Address [address] [place] [address] Care Team Providers Care Flight Engineer Manager Name Role Phone Michael Nahomy Primary Care Provider UnavailDr. John Garrett Unavailable [phone] William Lamb Unavailable [phone] Livier Michelle Unavailable [phone] Allergies Allergen (clinical drug ingredient) Drug/Non Drug Allergy documented on EMR Reaction Allergy Type Onset Date Status Substance with sulfonamide structure and antibacterial mechanism of action (substance) SULFA (uncoded) rash Allergy Active Reason For Referral No Information Medications Medication SIG (Take, Route, Frequency, Duration) Notes Start Date End Date Status FERROUS SULFATE 325 mg 1 tab(s) orally 2 times a day; Duration: 30 days Active ROPINIROLE 1 mg 1 tab(s) orally qHS; Duration: 30 days Not-Taking ADDERALL XR 10 mg 1 cap(s) orally once a day (in the morning) Active MODAFINIL 100 mg 1 tab(s) orally once a day (in the morning) Not-Taking VITAMIN D3 1250 mcg 1 cap(s) orally once a week 46032 IU weekly Active Zavzpret 10 MG 1 SPRAY INTRANASALLY ONCE DAILY, NO REPEAT DOSE; Duration: 30 DAYS *Please review and pick correct strength-formula tion from Medispan options. If intended option is not shown, discontinue and re-order from Quick Search* 12/13/2023 Active Levothyroxine Sodium 88 MCG 1 tab(s) orally once a day; Duration: 30 day(s) Active Ferrous Sulfate 325 (65 Fe) MG 1 tab(s) orally 2 times a day; Duration: 30 days Active Adderall XR 10 MG 1 cap(s) orally once a day (in the morning) Active Vitamin D3 1250 MCG 1 CAP(S) ORALLY ONCE A WEEK 89686 IU weekly *Please review and pick correct strength-formula tion from nxtControl options. If intended option is not shown, discontinue and re-order from Quick Search* Active ZAVZPRET 10 mg 1 spray intranasally once daily, no repeat dose; Duration: 30 days As needed 12/13/2023 Active EMGALITY PREFILLED PEN GNLM 120 MG/ML 1 INJECTION DIRECTED SUBCUTANEOUSLY ONCE A MONTH; Duration: 30 DAYS *Please review for potential replacement for e-prescription and drug interaction check* Not-Taking QULIPTA 60 mg 1 tab(s) orally once a day; Duration: 30 day(s) 11/01/2023 Active rOPINIRole HCl 1 MG 1 tab(s) orally qHS; Duration: 30 days Not-Taking LEVOTHYROXINE 88 mcg (0.088 mg) 1 tab(s) orally once a day; Duration: 30 day(s) Active Modafinil 100 MG 1 tab(s) orally once a day (in the morning) Not-Taking Qulipta 60 MG 1 tab(s) orally once a day 11/01/2023 Active Social History Tobacco Use: Social History Observation Description Date Details (start date - stop date) Never Smoker NA - NA Smoking Smart Form: Question Answer Notes Are you a: never smoker Problems Problem Type SNOMED Code ICD Code Onset Dates Problem Status W/U Status Risk Notes Problem Chronic migraine without aura, non-refractor y (disorder) (570492704790 100) Migraine without aura, not intractable, without status migrainosus (G43.009) Active confirmed Problem Migraine with aura (3887608) Migraine with aura, not intractable, without status migrainosus (G43.109) Active confirmed Problem Chronic migraine without aura, non-intractab le (265680779939 100) Chronic migraine without aura, not intractable, without status migrainosus (G43.709) Active confirmed Problem Muscle pain (89239370) Myalgia, unspecified site (M79.10) Active confirmed Vital Signs Respiratory Rate 17 /min 09/04/2024 Oximetry 98 % 09/04/2024 Blood pressure diastolic 80 mm Hg 09/04/2024 Height 66 in 09/04/2024 Blood pressure systolic 135 mm Hg 09/04/2024 Encounters Encounter Location Date Provider Diagnosis [address] [address] 11/27/2024 Livier Michelle Chronic migraine without aura, not intractable, without status migrainosus G43.709 and Myalgia, unspecified site M79.[address] [address] 09/04/2024 Livier Michelle Chronic migraine without aura, not intractable, without status migrainosus G43.709 and Myalgia, unspecified site M79.[address] [address] 11/25/2024 Livier Michelle Chronic migraine without aura, not intractable, without status migrainosus G43.[address] [address] 06/02/2025 William Lamb [address] [address] 06/01/2025 William Lamb Assessments Encounter Date Diagnosis (ICD Code) Assessment Notes Treatment Notes Treatment Clinical Notes Section Notes 09/04/2024 Chronic migraine without aura, not intractable, without status migrainosus (ICD-10 - G43.709) -Abortive treatment plan: Discontinue Zomig. -Preventive treatment plan: Continue Botox. Continue Qulipta.-Educate d the patient on migraine lifestyle recommendations. I recommended the following measures: avoid known triggers of migraine, drink > 100 fluid ounces of non-caffeinated fluid daily, limit caffeine to 2 servings/day, sleep 7-8 hours/night and address any sleep concerns with us and report symptoms of snoring or fatigue; healthy management of stress; avoid treating headaches more than 2 days/week with abortive medication unless approved in treatment plan; can take Riboflavin 400 mg and Magnesium 500 mg daily as supplements; keep scheduled follow-up appointments 09/04/2024 Myalgia, unspecified site (ICD-10 - M79.10) Botox injections given in levators to help with these symptoms. 11/27/2024 Chronic migraine without aura, not intractable, without status migrainosus (ICD-10 - G43.709) -Abortive treatment plan: Continue Zomig.-Preventiv e treatment plan: Continue Botox. Continue Qulipta. -Educated the patient on migraine lifestyle recommendations. I recommended the following measures: avoid known triggers of migraine, drink > 100 fluid ounces of non-caffeinated fluid daily, limit caffeine to 2 servings/day, sleep 7-8 hours/night and address any sleep concerns with us and report symptoms of snoring or fatigue; healthy management of stress; avoid treating headaches more than 2 days/week with abortive medication unless approved in treatment plan; can take Riboflavin 400 mg and Magnesium 500 mg daily as supplements; keep scheduled follow-up appointments 11/27/2024 Myalgia, unspecified site (ICD-10 - M79.10) Symptoms have improved with botulinum toxin units in the trapezius and levator muscles. 11/25/2024 Chronic migraine without aura, not intractable, without status migrainosus (ICD-10 - G43.709) Plan Of Treatment No Information Insurance Providers Payer Name Payer Address Payer Phone Subscriber Number Group Number Insured Name Patient Relationship to Insured Coverage Start Date Coverage End Date [facility] [address] [place] [address] [id number] Abe Luli Self - patient is the insured 4 Medical (General) History Medical History History ICD Code Hypothyroidism Migraine Idiopathic hypersomnia RLS
--- OUTSIDE RECORDS SUMMARY | 2025-06-26 10:41 | XMS_ITS | Clinical Summary ---
Author Organization [facility] Address [address] [place] [address] Care Team Providers Care Director Veterinary Name Role Phone Nahomy Rodriguez DO Primary Care Provider [phone] Allergies Active Allergy Reactions Criticality Noted Date Comments Iodinated Contrast Media Itching High 03/27/2019 Sulfa (Sulfonamide Antibiotics) Rash Medium 03/10/2024 Sulfamethoxazole Other (See comments) Reaction: Unknown, Sulfamethoxazole-Trimethop rim Rash,Other (See comments) High 02/16/2017 Trimethoprim Other (See comments) Reaction: Unknown, Medications ergocalciferol (VITAMIN D2) 50,000 unit capsule take 1 capsule by oral route every week 0 0 06/06/20 16 Active levothyroxine sodium (TIROSINT) 125 mcg capsule take 1 capsule by oral route every day 0 0 06/06/20 16 Active norgestimate-et hinyl estradioL (ORTHO TRI-CYCLEN LO) 0.18/0.215/0.25 mg-25 mcg per tablet Erp-Ku-Mmgfvzgz 0.18 mg/0.215 mg/0.25 mg-25 mcg tablet Active RESTASIS 0.05 % ophthalmic emulsion 06/12/20 19 Active lifitegrast 5 % dropperette Xiidra 5 % eye drops in a dropperette 02/22/20 18 Active tretinoin (ALTRALIN) 0.05 % gel tretinoin 0.05 % topical gel APPLY TOPICALLY TO AFFECTED AREA AT BEDTIME 12/31/19 19 Active cyanocobalamin (Vitamin B-12) 1,000 mcg/mL injection cyanocobalamin (vit B-12) 1,000 mcg/mL injection solution ADMINISTER 1 ML UNDER THE SKIN EVERY WEEK IN THE MORNING Active ondansetron (ZOFRAN) 4 mg tablet ondansetron HCl 4 mg tablet TK 1 T PO Q 8 H PRF NAUSEA OR VOM Active topiramate (TOPAMAX) 25 mg tablet topiramate 25 mg tablet TAKE 1 TABLET BY MOUTH EVERY DAY Active DULoxetine DR (CYMBALTA) 30 mg capsule Take 1 capsule (30 mg total) by mouth daily Active methylPREDNISol one (MEDROL DOSEPACK) 4 mg DosepackIndicat ions:Strain of neck muscle, subsequent encounter Take 6 tabs on day 1, reduce dose by 1 daily until prescription is complete. 1 packet 03/24/20 23 Active cyclobenzaprine (FLEXERIL) 5 mg tabletIndicatio ns:Strain of neck muscle, subsequent encounter Take 1 tablet (5 mg total) by mouth 3 (three) times a day as needed for muscle spasms for up to 5 days 15 tablet 03/24/20 23 Active modafiniL (PROVIGIL) 200 mg tablet Take 1 tablet (200 mg total) by mouth daily 06/29/20 23 Active Qulipta 60 mg tablet 02/28/20 24 Active dextroamphetami ne-amphetamine XR (ADDERALL XR) 10 mg 24 hr capsule 03/10/20 24 Active phentermine (Lomaira) 8 mg tablet TAKE UP TO 3 TABLETS BY MOUTH IN THE MORNING BEFORE NOON 12/03/19 23 Active predniSONE (DELTASONE) 50 mg tablet TAKE 1 TABLET BY MOUTH [address] SCAN Active rOPINIRole (REQUIP) 0.25 mg tablet Active rOPINIRole (REQUIP) 1 mg tablet Active spironolactone (ALDACTONE) 50 mg tablet TK 1 T PO QD IN THE MORNING Active SUMAtriptan (IMITREX) 50 mg tablet TK 1 T PO AT ONSET OF HEADACHE MAY REPEAT IN 1 H IN NEEDED MAX OF 4 TABS IN 24 HOURS Active valACYclovir (VALTREX) 500 mg tablet 01/25/20 24 Active Active Problems No known active problems Encounters Date Type Department Care Team Description 05/12/2025 10:27 AM WIRER MAINTENANCE - 05/12/2025 11:59 PM [facility] Hospital Encounter [address] [address] Screening mammogram, encounter for Discharge Disposition: Discharge to home or self care from Last 3 Months Surgical History Surgery Date Site/Laterality Comments CERVICAL DISCECTOMY Discectomy, cervical TONSILLECTOMY Tonsillectomy TONSILLECTOMY BUNIONECTOMY GANGLION CYST EXCISION SECTION DISCECTOMY REFRACTIVE SURGERY Medical History Medical History Date Comments Hx Other Medical 08/2012 Bunionectomy Delivered by section 2006 Ce sarean delivery Ganglion Ganglion cyst Migraines MRSA (methicillin resistant Staphylococcus aureu s) Thyroid disease Family History Medical History Relation Name Comments Heart disease Father Stroke Maternal Grandfather Family history of stroke - Relation: Grandfather (Added by TW Conv) Kidney disease Mother Heart disease Other 1 Family history of Cardiovascular disease; Stroke Other 2 Family history of Stroke; Lung disease Other 3 Family history of lung disease - Relation: Grandmother (Added by TW Conv) Stroke Other 4 Family history of stroke - Relation: Grandmother (Added by TW Conv) Relation Name Status Comments Father Maternal Grandfather Mother Other 1 Other 2 Other 3 Other 4 Social History Tobacco Use Types Packs/Day Years Used Date Smoking Tobacco: Never Smokeless Tobacco: Never Tobacco Cessation:Counseling Given: Not Answered Alcohol Use Standard Drinks/Week Comments Never 0 (1 standard drink = 0.6 oz pur e alcohol) AUDIT-C Answer Date Recorded Frequency of Alcohol Consumption Never 06/16/2019 Average Number of Drinks Not on file 019 Frequency of Binge Drinking Not on file 06/01 Comments No Sex and Gender Information Value Date Recorded Sex Assigned at Not on file Legal Sex Female 4:18 AM WIRER MAINTENANCE Gender Identity Not on file Sexual Orientation Not on file Obstetrics History Para Term AB IAB SAB Ectopic Multiple Livin g Live Births 1 1 Date Outcome GA Total Labor Labor/2nd/3rd Weight Sex Type Anes PTL Soni A1 A5 Name Clin Last Filed Vital Signs Vital Sign Reading Time Taken Comments Blood Pressure 120/81 03/10/2024 5:03 PM CDT Pulse 80 03/10/2024 5:03 PM CDT Temperature 36.8 C (98.2 F) 03/10/2024 5:03 PM CDT Respiratory Rate 20 03/10/2024 5:03 PM CDT Oxygen Saturation 100% 03/10/2024 5:03 PM CDT Inhaled Oxygen Concentration - - Weight 83.9 kg (185 lb) 03/10/2024 5:03 PM CDT Height 165.1 cm (5' 5) 03/10/2024 5:03 PM CDT Body Mass Index 30.79 03/10/2024 5:03 PM CDT Plan of Treatment Health Maintenance Due Date Last Done Comments Cervical Cancer Screening 1980 Depression Screening 1980 Varicella Vaccines (1 of 2 - 13+ 2-dose series) 1993 Hepatitis B Screening 1998 Regular Well Visit/Exam 18-64 1998 HPV Vaccines (1 - 3-dose SCDM series) 2007 Covid-19 Vaccine (2 - season) 2025 11/18/2020 Influenza Vaccine (#1) 2025 9, 04/14/2018, 04/13/2017, Additional history exists Breast Cancer Screening-Mammogram 05/12/2026 05/12/2025 DTaP/Tdap/Td Vaccine (7 - Td or Tdap) 02/12/2031 02/12/2021, 12/01/1994, 11/21/1985, Additional history exists Hepatitis C Screening Completed 06/06/2016 Pneumococcal vaccine <65 Aged Out No longer eligible based on patient's age to complete this topic Procedures Procedure Name Priority Date/Time Associated Diagnosis Comments SCREENING MAMMOGRAM BILATERAL W MIGUE Schedule Routine, Read Routine (OP Routine) 05/12/2025 10:41 AM WIRER MAINTENANCE Screening mammogram, encounter for SERUM HEPATITIS C AB Routine 06/06/2016 1:45 PM WIRER MAINTENANCE from Last 3 Months or Most Recently Relevant to Health Maintenance Results * Screening Mammogram Bilateral W Migue (05/12/2025 10:41 AM WIRER MAINTENANCE) Anatomical Region Laterality Modality Breast Bilateral Mammography Impressions 05/14/2025 2:36 PM WIRER MAINTENANCE Bilateral No evidence of malignancy in either breast. OVERALL BI-RADS FINAL ASSESSMENT: 1 - Negative RECOMMENDATION: Recommend bilateral annual screening mammography. Narrative 05/14/2025 2:36 PM WIRER MAINTENANCE EXAMINATION: Screening Mammogram Bilateral W Migue: 05/12/2025 COMPARISON: Relevant prior studies available at the time of interpretation were reviewed, including the most recent mammogram on: 05/03/2024. TECHNIQUE: Mammography was performed with 2D and 3D digital breast tomosynthesis (DBT) images. CAD was utilized. BREAST PARENCHYMAL COMPOSITION: There are scattered areas of fibroglandular density. FINDINGS: Bilateral There is no suspicious mass, calcification, or architectural distortion in either breast. us Self Screening Mammogram IMG MAMMO PROCEDURES Fi nal Result * Serum Hepatitis C ab (06/06/2016 1:45 PM WIRER MAINTENANCE) HCV ab Non-Reacti ve Non-Reacti ve CDR HISTORICAL RESULTS Serum 06/06/2016 1:45 PM WIRER MAINTENANCE Juan Luis Rebollar MD LAB BLOOD ORDERABLES Fin al Result Performing Organization Address City/State/[facility] Co de Phone Number CDR HISTORICAL RESULTS from Last 3 Months or Most Recently Relevant to Health Maintenance Insurance [facility] CHOICE PLUS [facility] HMO/PPO Address: [address] [address] [place] [address] [facility] CHOICE PLUS [facility] HMO/PPO Address: [phone] [place] [address] [facility] CHOICE PLUS [facility] HMO/PPO Address: [phone] [place] [phone] Care Teams Director Veterinary Relationship Specialty Start Date End Date Nahomy Rodriguez DO PCP - General Family Medicine 03/24/23
--- OUTSIDE RECORDS SUMMARY | 2025-06-26 10:41 | XMS_ITS | Patient Health Record ---
Author Organization [facility] , Address [address] [place] [address] Care Team Providers Care Threading Machine Setter Name Role Phone Dustin Foy D.O. Primary Care Provider Olivia Dumas Unavailable Unavailable Allergies Allergen (clinical drug ingredient) Drug/Non Drug Allergy documented on EMR Reaction Allergy Type Onset Date Status Substance with sulfonamide structure and antibacterial mechanism of action (substance) Sulfa drugs (uncoded) Unknown Allergy Active sulfamethoxazole / trimethoprim Bactrim Rash Drug Allergy Active Reason For Referral No Information Medications Medication SIG (Take, Route, Fr equency, Duration) Notes Start Date End Date Status Keflex 500 MG Capsule 1 capsule Orally e very 6 hrs; Duration: 7 days 02/18/2015 Active Diclofenac Active Gabapentin Active Levothyroxine Sodium Active Vitamin D Active Ortho Tri-Cyclen (28) Active Keflex 750 MG Capsule 1 capsule Orally e very 6 hrs; Duration: 7 days 02/25/2015 Active Social History Section Notes: The patient is with 1 child. She denies alcohol or tobacco use and denies drug or chemical addiction. She is employed as a litigation legal secretary. Plan Of Treatment Pending Test Test Name Order Date Lumbar Microdiscectomy 01/19/2015 Insurance Providers Payer Name Payer Address Payer Phone Subscriber Number Group Number Insured Name Patient Relationship to Insured Coverage Start Date Coverage End Date [facility] [address] [place] [address] [id number] Luli Fish Self - patient is the insured Medical (General) History Medical History History ICD Code Depression Irritable bowel syndrome Hypothyroidism Surgical History Surgery Date(Month/Year) Bunionectomy Tonsillectomy Ganglion cyst excision from the hand
--- OUTSIDE RECORDS SUMMARY | 2025-06-26 10:41 | XMS_ITS | Clinical Summary ---
[facility] on Address [address] [place] [id number] Care Team Providers Care Transport Truck Driver Name Role Phone Unavailable Primary Care Provider Unavailabl e Allergies Active Allergy Reactions Criticality Noted Date Comments Iodinated Contrast Media Itching High 03/27/2019 Iodine Itching High 03/27/2019 Sulfa (Sulfonamide Antibiotics) Rash Medium 01/30 Sulfamethoxazole-Trimethoprim Rash High 2018 Medications RESTASIS 0.05 % emulsion 07/13/19 20 Active ergocalciferol (VITAMIN D2) 50,000 unit capsule ergocalciferol (vitamin D2) 1,250 mcg (50,000 unit) capsule TAKE 1 CAPSULE BY MOUTH ONCE A WEEK WITH LARGE MEAL 12/03/19 18 Active Levothyroxine (Tirosint) 125 mcg Capsule Tirosint 125 mcg capsule TAKE ONE Capsule BY MOUTH EVERY DAY WITH WATER ONLY Active Norgestimate-Et hinyl estradiol 0.18/0.215/0.25 mg-25 mcg tablet Take 1 Tablet by mouth. 12/16/19 18 Active lifitegrast (Xiidra) 5 % Dropperette Xiidra 5 % eye drops in a dropperette 02/22/20 18 Active spironolactone (ALDACTONE) 25 mg tablet spironolactone 25 mg tablet TAKE 1 TABLET BY MOUTH EVERY DAY IN THE MORNING Active Active Problems No known active problems Family History Medical History Relation Name Comments Healthy Father Healthy Mother Relation Name Status Comments Father Alive Mother Alive Social History Tobacco Use Types Packs/Day Years Used Date Smoking Tobacco: Never Smokeless Tobacco: Never Alcohol Use Standard Drinks/Week Comments Never 0 (1 standard drink = 0.6 oz pur e alcohol) Comments No Sex and Gender Information Value Date Recorded Sex Assigned at Not on file Legal Sex Female 12:02 PM CDT Gender Identity Not on file Sexual Orientation Not on file Last Filed Vital Signs Vital Sign Reading Time Taken Comments Blood Pressure 124/84 08/11/2019 12:08 PM FREIGHT ADJUSTER Pulse 78 08/11/2019 12:08 PM FREIGHT ADJUSTER Temperature 36.9 C (98.5 F) 08/11/2019 12:08 PM FREIGHT ADJUSTER Respiratory Rate 18 08/11/2019 12:08 PM FREIGHT ADJUSTER Oxygen Saturation 99% 03/27/2019 12:13 PM CDT Inhaled Oxygen Concentration - - Weight 63.5 kg (140 lb) 08/11/2019 12:08 PM FREIGHT ADJUSTER Height 165.1 cm (5' 5) 08/11/2019 12:08 PM FREIGHT ADJUSTER Body Mass Index 23.3 08/11/2019 12:08 PM FREIGHT ADJUSTER Plan of Treatment Health Maintenance Due Date Last Done Comments DTAP/TDAP/TD VACCINES (1 - Tdap) 1999 HEPATITIS B VACCINES (1 of 3 - 19+ 3-dose series) 01/2000 HPV/Cotest (21-29) 2001 CERVICAL CANCER SCREENING 2010 HPV/Cotest (30-65) 2010 PAP SMEAR 2010 BREAST CANCER SCREENING 2020 INFLUENZA VACCINE (#1) 2025 HPV VACCINES (No Doses Required) Completed Insurance
[2025-06-26 11:42] VITALS: BP 151/93; PULSE 98; RESP 16; TEMP 36.6; O2SAT 100
--- OUTSIDE RECORDS SUMMARY | 2025-06-26 16:55 | XMS_ITS | Clinical Summary ---
Author Organization [facility] Soundtracker Address [address] [facility] [place] [address] Care Team Providers Care Culinary Arts Teacher Name Role Phone Nahomy Rodriguez DO Primary Care Provider [phone] Source Comments [facility],non-owned Affiliates and Associated Physician Practices is amultiple site organization consisting of ambulatory clinics and hospital sitesin [place], [place] and [place]. This disclosure is being madepursuant to the Care Everywhere program and may not contain all information available regarding this patient. Last updated 18.[facility] Allergies Active Allergy Reactions Criticality Noted Date [...] needed 8 Active vitamin D, ergocalciferol, (DRISDOL) 14535 UNITS capsule Take 1 capsule by mouth [...] on file Legal Sex Female 2:15 PM TIME CLOCK REPAIRER Gender Identity Not on file Sexual Orientation [...] Comments LIPID PROFILE Routine 06/10/2018 7:40 AM TIME CLOCK REPAIRER Medication management COMPREHENSIVE METABOLIC PANEL Routine 04/27/2016 7:40 AM CDT from Last 3 Months or Most Recently Relevant to Health Maintenance Results * (ABNORMAL) LIPID PROFILE (06/10/2018 7:40 AM TIME CLOCK REPAIRER) Cholesterol 204(H) 100 - 199 mg/dL [facility] [...] BLOOD SPECIMEN / Unknown 06/10/2018 7:40 AM TIME CLOCK REPAIRER 06/10/2018 Narrative Resulting Agency Comment [facility] [address] [facility] [id number] Kori TA LAB - CHEMISTRY ORDERABLES F inal Result [facility] INSURANCE BILL [address] [place] [address] * COMPREHENSIVE METABOLIC PANEL (04/27/2016 7:40 AM CDT) Glucose 87 65 - 99 mg/dL [facility] ([facility]) BUN 13 6 - 20 mg/dL [facility] ([facility]) Creatinine 0.74 0.57 - 1.00 mg/dL [facility] ([facility]) eGFR non- 105 >59 mL/min/1.7 3 [facility] ([facility]) eGFR 121 >59 mL/min/1.7 3 [facility] ([facility]) BUN/Creatinine Ratio 18 8 - 20 [facility] ([facility]) Sodium 142 136 - 144 mmol/L [facility] ([facility]) Comment:Please note refere nce interval change Potassium 3.9 3.5 - 5.2 mmol/L [facility] ([facility]) Comment:Please note refere nce interval change Chloride 101 97 - 106 mmol/L [facility] ([facility]) Comment:Please note refere nce interval change CO2 24 18 - 29 mmol/L [facility] ([facility]) Calcium 9.0 8.7 - 10.2 mg/dL [facility] ([facility]) Protein Total 6.4 6.0 - 8.5 g/dL [facility] ([facility]) Albumin 4.1 3.5 - 5.5 g/dL [facility] ([facility]) Globulin Total 2.3 1.5 - 4.5 g/dL [facility] ([facility]) Albumin/Globulin Ratio 1.8 1.1 - 2.5 [facility] ([facility]) Bilirubin Total 0.4 0.0 - 1.2 mg/dL [facility] ([facility]) Alkaline Phosphatase 53 39 - 117 IU/L [facility] ([facility]) AST 14 0 - 40 IU/L [facility] ([facility]) ALT 19 0 - 32 IU/L [facility] ([facility]) Blood specimen (specimen) BLOOD SPECIMEN / Unknown 04/27/2016 7:40 AM CDT 04/27/2016 12:40 PM CDT Narrative [facility] ([facility]) - 04/30/2016 5:06 PM CDT Performed at: [facility] [address] [place], [place] [id number] Information Systems Operator: Matt Davison PhD, Phone: [phone] K[facility] TA LAB - CHEMISTRY ORDERABLES E dited Result - Final [facility] ([facility]) [address] [place] [address] from Last 3 Months or Most Recently Relevant to Health Maintenance Insurance [facility] [employer] Care Teams Culinary Arts Teacher Relationship Specialty Start Date End Date Nahomy Rodriguez DO [address] [place] [address] PCP - General Family Medicine 03/08/21
--- OUTSIDE RECORDS SUMMARY | 2025-06-26 16:55 | XMS_ITS | Clinical Summary ---
Author Organization [facility] lin Address [address] [facility] [address] Care Team Providers Care Supervisor Cook Room Name Role Phone Unavailable Primary Care Provider Unavailabl e Social History Tobacco Use Types Packs/Day Years Used Date Smoking Tobacco: Never Assessed Comments Unknown Sex and Gender Information Value Date Recorded Sex Assigned at Not on file Legal Sex Female 10:48 PM EDT Gender Identity Not on file Sexual Orientation Not on file Plan of Treatment Not on file Medical Devices Not on file Insurance [facility]
--- OUTSIDE RECORDS SUMMARY | 2025-06-26 16:55 | XMS_ITS | Clinical Summary ---
Author Organization [facility] Address [address] [place] [address] Care Team Providers Care Physician In Private Practice Name Role Phone Nahomy Rodriguez DO Primary Care Provider [phone] Allergies Active Allergy Reactions Criticality Noted Date [...] TRI-CYCLEN LO) 0.18/0.215/0.25 mg-25 mcg per tablet Tsf-Of-Enxserek 0.18 mg/0.215 mg/0.25 mg-25 mcg tablet Active [...] Department Care Team Description 05/12/2025 10:27 AM [facility] - 05/12/2025 11:59 PM [facility] Hospital Encounter [address] [address] Screening mammogram, encounter for Discharge Disposition: Discharge [...] on file Legal Sex Female 4:18 AM [facility] Gender Identity Not on file Sexual Orientation [...] Read Routine (OP Routine) 05/12/2025 10:41 AM [facility] Screening mammogram, encounter for SERUM HEPATITIS C AB Routine 06/06/2016 1:45 PM [facility] from Last 3 Months or Most Recently Relevant to Health Maintenance Results * Screening Mammogram Bilateral W Migue (05/12/2025 10:41 AM ICE CREAM SCOOPER) Anatomical Region Laterality Modality Breast Bilateral Mammography Impressions 05/14/2025 2:36 PM [facility] Bilateral No evidence of malignancy in either breast. OVERALL BI-RADS FINAL ASSESSMENT: 1 - Negative RECOMMENDATION: Recommend bilateral annual screening mammography. Narrative 05/14/2025 2:36 PM [facility] EXAMINATION: Screening Mammogram Bilateral W Migue: 05/12/2025 [...] Serum Hepatitis C ab (06/06/2016 1:45 PM [facility]) HCV ab Non-Reacti ve Non-Reacti ve CDR HISTORICAL RESULTS Serum 06/06/2016 1:45 PM [facility] Juan Luis Rebollar MD LAB BLOOD ORDERABLES Fin al Result Performing Organization Address City/State/[facility] Co de Phone Number CDR HISTORICAL RESULTS from Last 3 Months or Most Recently Relevant to Health Maintenance Insurance [facility] CHOICE PLUS [facility] CHO[facility] PLUS [facility] CHOICE PLUS Member Subscriber Plan / Payer (Ef fective 2018-Present) Name:Luli Fish Keshia Relation to Subscriber:Self Name:Luli Fish Payer ID:[id number] (NAIC) Type:[facility] HMO/PPO Address: [place] [id number] [place] [phone] Care Teams Physician In Private Practice Relationship Specialty Start Date End Date Nahomy Rodriguez DO PCP - General Family Medicine 03/24/23
--- OUTSIDE RECORDS SUMMARY | 2025-06-26 16:55 | XMS_ITS | Data Portability ---
Author Organization [place] - [facility], Main Office Address [address] [place] [address] Assessment No assessment recorded. Plan of Treatment Reminders Order Date Submit Date Provider Last Modified By Organization Details Last Modified Time Details Appointments None record ed. Lab None record ed. Referral None record ed. Procedures None record ed. Surgeries None record ed. Imaging None record ed. Medication Orders None record ed. Patient TargetsNo targets recorded. Patient InstructionsNo instructions recorded. Reason for Referral None Reported. Results Created Date Observation Date Name Description Value Unit Range Abnormal Flag Note LastModifiedBy Organization Detail LastModifiedTime 10/02/19 22 10/04/2021 TSH+F REE T4 TSH 1.14 mIU/L normal Refer ence Range > or = 20 Years 0.40- 4.50 Pregn sarath Range s First trime ster 0.26- 2.66 Secon d trime ster 0.55- 2.73 Third trime ster 0.43- 2.91 Not Available [employer] [facility] [address] [place], [address], 10/04/2021 04:25:47 10/02/19 22 10/04/2021 TSH+F REE T4 T4, free 1.3 NG/dL 0.8-1. 8 normal Not Available [employer] [facility] [address] [place], [address], 10/04/2021 04:25:47 10/02/19 22 10/04/2021 T3, FREE T3, free 3.1 pg/mL 2.3-4. 2 normal Not Available [employer] [facility] [address] [place], [address], 10/04/2021 04:25:47 10/02/19 22 10/04/2021 VITAM IN B12/F OLATE , SERUM PANEL vitamin B12 611 pg/mL 200-11 00 normal Not Available [address], [address], 10/04/2021 04:25:46 10/02/19 22 10/04/2021 VITAM IN B12/F OLATE , SERUM PANEL folate, serum 9.4 NG/mL normal Refer ence Range Low: <3.4 Borde rline : 3.4-5 .4 Mai l: >5.4 Not Available [address], [address], 10/04/2021 04:25:46 10/02/19 22 10/04/2021 THYRO ID PEROX IDASE ANTIB ODIES thyroid peroxidase antibodies 46 IU/mL <9 high Not Available [address], [address], 10/04/2021 04:25:45 10/02/19 22 10/04/2021 COMPR EHENS NNEKA METAB OLIC PANEL eGFR 111 mL/mi n/1.7 3m2 > or = 60 normal Not Available [address], [address], 10/04/2021 04:25:45 10/02/19 22 10/04/2021 COMPR EHENS NNEKA METAB OLIC PANEL BUN/creatini ne ratio not applic able (calc ) 6-22 Not Available [address], [address], 10/04/2021 04:25:45 10/02/19 22 10/04/2021 COMPR EHENS NNEKA METAB OLIC PANEL sodium 139 mmol/ L 135-14 6 normal Not Available [address], [address], 10/04/2021 04:25:45 10/02/19 22 10/04/2021 COMPR EHENS NNEKA METAB OLIC PANEL potassium 4.2 mmol/ L 3.5-5. 3 normal Not Available [address], [address], 10/04/2021 04:25:45 10/02/19 22 10/04/2021 COMPR EHENS NNEKA METAB OLIC PANEL chloride 106 mmol/ L 98-110 normal Not Available [address], [address], 10/04/2021 04:25:45 10/02/19 22 10/04/2021 COMPR EHENS NNEKA METAB OLIC PANEL carbon dioxide 22 mmol/ L 20-32 normal Not Available [address], [address], 10/04/2021 04:25:45 10/02/19 22 10/04/2021 COMPR EHENS NNEKA METAB OLIC PANEL calcium 9.0 mg/dL 8.6-10 .2 normal Not Available [address], [address], 10/04/2021 04:25:45 10/02/19 22 10/04/2021 COMPR EHENS NNEKA METAB OLIC PANEL protein, total 6.8 g/dL 6.1-8. 1 normal Not Available [address], [address], 10/04/2021 04:25:45 10/02/19 22 10/04/2021 COMPR EHENS NNEKA METAB OLIC PANEL albumin 3.8 g/dL 3.6-5. 1 normal Not Available [address], [address], 10/04/2021 04:25:45 10/02/19 22 10/04/2021 COMPR EHENS NNEKA METAB OLIC PANEL globulin 3.0 g/dL_ (calc ) 1.9-3. 7 normal Not Available [address], [address], 10/04/2021 04:25:45 10/02/19 22 10/04/2021 COMPR EHENS NNEKA METAB OLIC PANEL albumin/glob ulin ratio 1.3 (calc ) 1.0-2. 5 normal Not Available [address], [address], 10/04/2021 04:25:45 10/02/19 22 10/04/2021 COMPR EHENS NNEKA METAB OLIC PANEL bilirubin, total 0.5 mg/dL 0.2-1. 2 normal Not Available [address], [address], 10/04/2021 04:25:45 10/02/19 22 10/04/2021 COMPR EHENS NNEKA METAB OLIC PANEL alkaline phosphatase 88 U/L 31-125 normal Not Available [address], [address], 10/04/2021 04:25:45 10/02/19 22 10/04/2021 COMPR EHENS NNEKA METAB OLIC PANEL AST 13 U/L 10-30 normal Not Available [address], [address], 10/04/2021 04:25:45 10/02/19 22 10/04/2021 COMPR EHENS NNEKA METAB OLIC PANEL ALT 12 U/L 6-29 normal Not Available [address], [address], 10/04/2021 04:25:45 10/02/19 22 10/04/2021 COMPR EHENS NNEKA METAB OLIC PANEL glucose 86 mg/dL 65-99 normal Fasti ng refer ence inter tina Not Available [address], [address], 10/04/2021 04:25:45 10/02/19 22 10/04/2021 COMPR EHENS NNEKA METAB OLIC PANEL urea nitrogen (BUN) 16 mg/dL 7-25 normal Not Available [address], [address], 10/04/2021 04:25:45 10/02/19 22 10/04/2021 COMPR EHENS NNEKA METAB OLIC PANEL creatinine 0.77 mg/dL 0.50-1 .10 normal Not Available [address], [address], 10/04/2021 04:25:45 10/02/19 22 10/04/2021 COMPR EHENS NNEKA METAB OLIC PANEL eGFR non-afr. ecuadorean 96 mL/mi n/1.7 3m2 > or = 60 normal Not Available [address], [address], 10/04/2021 04:25:45 01/08/20 22 01/09/2022 TSH+F REE T4 TSH 1.32 mIU/L normal Refer ence Range > or = 20 Years 0.40- 4.50 Pregn sarath Range s First trime ster 0.26- 2.66 Secon d trime ster 0.55- 2.73 Third trime ster 0.43- 2.91 Not Available [address], [address], 01/09/2022 13:59:34 01/08/20 22 01/09/2022 TSH+F REE T4 T4, free 1.3 NG/dL 0.8-1. 8 normal Not Available [address], [address], 01/09/2022 13:59:34 01/08/20 22 01/09/2022 VITAM IN D,25- OH,TO [place],I A vitamin D,25-oh,tota l,ia 46 NG/mL 30-100 normal Vitam in D Statu s 25-OH Vitam in D: Defic iency : <20 ng/mL Insuf ficie ncy: 20 - 29 ng/mL Optim al: > or = 30 ng/mL For 25-OH Vitam in D testi ng on patie nts on D2-odom pplem entat ion and patie nts for whom quant itati on of D2 and D3 fract ions is requi red, the [employer] Assur eD(TM ) 25-OH VIT D, (D2,D 3), LC/MS /MS is recom reynaldo d: order code 51852 (adrien ents >2yrs ). See Note 1 Note 1 For addit ional infor amanda calzada e refer to http: //[facility] Roberto blank ics.c om/fa q/FAQ 199 (This link is being provi ded for infor sophie buckley/ luis antonio handy purpo ses only. ) Not Available [employer] [place] [address] [place], [address], 01/09/2022 13:59:33 01/08/20 22 01/09/2022 T3, FREE T3, free 3.1 pg/mL 2.3-4. 2 normal Not Available [employer] [address] [place], [address], 01/09/2022 13:59:33 01/08/20 22 01/09/2022 VITAM IN B12/F OLATE , SERUM PANEL vitamin B12 746 pg/mL 200-11 00 normal Not Available [employer] [address] [place], [address], 01/09/2022 13:59:32 01/08/20 22 01/09/2022 VITAM IN B12/F OLATE , SERUM PANEL folate, serum 11.6 NG/mL normal Refer ence Range Low: <3.4 Borde rline : 3.4-5 .4 Mai l: >5.4 Not Available [employer] [place] [address] [place], [address], 01/09/2022 13:59:32 01/08/20 22 01/09/2022 THYRO ID PEROX IDASE ANTIB ODIES thyroid peroxidase antibodies 96 IU/mL <9 high Not Available [address], [address], 01/09/2022 13:59:32 01/08/20 22 01/09/2022 COMPR EHENS NNEKA METAB OLIC PANEL glucose 94 mg/dL 65-99 normal Fasti ng refer ence inter tina Not Available [address], [address], 01/09/2022 13:59:31 01/08/20 22 01/09/2022 COMPR EHENS NNEKA METAB OLIC PANEL urea nitrogen (BUN) 13 mg/dL 7-25 normal Not Available [address], [address], 01/09/2022 13:59:31 01/08/20 22 01/09/2022 COMPR EHENS NNEKA METAB OLIC PANEL creatinine 0.77 mg/dL 0.50-1 .10 normal Not Available [address], [address], 01/09/2022 13:59:31 01/08/20 22 01/09/2022 COMPR EHENS NNEKA METAB OLIC PANEL eGFR non-afr. ecuadorean 96 mL/mi n/1.7 3m2 > or = 60 normal Not Available [address], [address], 01/09/2022 13:59:31 01/08/20 22 01/09/2022 COMPR EHENS NNEKA METAB OLIC PANEL eGFR 111 mL/mi n/1.7 3m2 > or = 60 normal Not Available [address], [address], 01/09/2022 13:59:31 01/08/20 22 01/09/2022 COMPR EHENS NNEKA METAB OLIC PANEL BUN/creatini ne ratio not applic able (calc ) 6-22 Not Available [address], [address], 01/09/2022 13:59:31 01/08/20 22 01/09/2022 COMPR EHENS NNEKA METAB OLIC PANEL sodium 139 mmol/ L 135-14 6 normal Not Available [address], [address], 01/09/2022 13:59:31 01/08/20 22 01/09/2022 COMPR EHENS NNEKA METAB OLIC PANEL potassium 4.0 mmol/ L 3.5-5. 3 normal Not Available [address], [address], 01/09/2022 13:59:31 01/08/20 22 01/09/2022 COMPR EHENS NNEKA METAB OLIC PANEL chloride 105 mmol/ L 98-110 normal Not Available [address], [address], 01/09/2022 13:59:31 01/08/20 22 01/09/2022 COMPR EHENS NNEKA METAB OLIC PANEL carbon dioxide 27 mmol/ L 20-32 normal Not Available [address], [address], 01/09/2022 13:59:31 01/08/20 22 01/09/2022 COMPR EHENS NNEKA METAB OLIC PANEL calcium 9.0 mg/dL 8.6-10 .2 normal Not Available [address], [address], 01/09/2022 13:59:31 01/08/20 22 01/09/2022 COMPR EHENS NNEKA METAB OLIC PANEL protein, total 7.0 g/dL 6.1-8. 1 normal Not Available [address], [address], 01/09/2022 13:59:31 01/08/20 22 01/09/2022 COMPR EHENS NNEKA METAB OLIC PANEL albumin 4.0 g/dL 3.6-5. 1 normal Not Available [address], [address], 01/09/2022 13:59:31 01/08/20 22 01/09/2022 COMPR EHENS NNEKA METAB OLIC PANEL globulin 3.0 g/dL_ (calc ) 1.9-3. 7 normal Not Available [address], [address], 01/09/2022 13:59:31 01/08/20 22 01/09/2022 COMPR EHENS NNEKA METAB OLIC PANEL albumin/glob ulin ratio 1.3 (calc ) 1.0-2. 5 normal Not Available [address], [address], 01/09/2022 13:59:31 01/08/20 22 01/09/2022 COMPR EHENS NNEKA METAB OLIC PANEL bilirubin, total 0.4 mg/dL 0.2-1. 2 normal Not Available [address], [address], 01/09/2022 13:59:31 01/08/20 22 01/09/2022 COMPR EHENS NNEKA METAB OLIC PANEL alkaline phosphatase 95 U/L 31-125 normal Not Available [address], [address], 01/09/2022 13:59:31 01/08/20 22 01/09/2022 COMPR EHENS NNEKA METAB OLIC PANEL AST 12 U/L 10-30 normal Not Available [address], [address], 01/09/2022 13:59:31 01/08/20 22 01/09/2022 COMPR EHENS NNEKA METAB OLIC PANEL ALT 13 U/L 6-29 normal Not Available [address], [address], 01/09/2022 13:59:31 01/08/20 22 01/09/2022 IRON, TIBC AND SHERI TIN PANEL iron, total 86 mcg/d L 40-190 normal Not Available [address], [address], 01/09/2022 13:59:30 01/08/20 22 01/09/2022 IRON, TIBC AND SHERI TIN PANEL iron binding capacity 525 mcg/d L_(ca lc) 250-45 0 high Not Available [address], [address], 01/09/2022 13:59:30 01/08/20 22 01/09/2022 IRON, TIBC AND SHERI TIN PANEL % saturation 16 %_(ca lc) 16-45 normal Not Available [address], [address], 01/09/2022 13:59:30 01/08/20 22 01/09/2022 IRON, TIBC AND SHERI TIN PANEL ferritin 20 NG/mL 16-232 normal Not Available [address], [address], 01/09/2022 13:59:30 Result Notes None recorded. Problems Name Problem SNOMED Code Status Onset Date Resolution Date Notes Provider Name and Address Organization Details Recorded Time Dry eyes 719085942 Active 2018 Not Available [facility] 3 04:52:08 Hypothyroidis m 76947899 Active 2018 Not Available [facility] 3 04:52:08 Fibromyalgia 738966497 Active 2021 Not Available [facility] 3 04:52:08 Hypothyroidis m due to Amina's thyroiditis 547071809 Active 2021 Not Available [facility] 3 04:52:08 Loss of hair 069312176 Active 2021 Not Available [facility] 3 04:52:08 Vitamin D deficiency 21053610 Active 2021 Not Available [facility] 3 04:52:08 Obesity 737989046 Active 2021 Not Available [facility] 3 04:52:08 Vitamin B12 deficiency (non anemic) 75916841 Active 2021 Not Available [facility] 3 04:52:08 Iron deficiency 30073920 Active 2021 Not Available [facility] 3 04:52:08 Problem Notes None recorded. Procedures Surgical History Date Name Laterality Status Provider Name and Address Organization Details Recorded Time section completed Not Available [facility] 08/30/2022 04:42:31 Cyst Removal completed Not Available [facility] 08/30/2022 04:42:31 lumbar discography completed Not Available [facility] 08/30/2022 04:42:31 tonsillectomy completed Not Available [facility] 08/30/2022 04:42:31 Imaging Results None recorded. Procedure Notes None recorded. Medical Equipment None Reported. Allergies Allergen ID Allergen Name Allergen Category Reaction Reaction Severity Criticality Documentation Date Start Date Code Code System Note Provider Name and Address Organization Details Recorded Time 7903 Bactrim medicatio n Not available Not available Not available 08/30/2022 [address]27 9 RxNorm Not Available [facility] 3 05:03:11 Medications Name Sig Start Date Stop Date Status Note LastModified by Organization Details LastModified Time ropinirole 1 mg tablet active Not Available Not Available Not Available ofloxacin 0.3 % eye drops 12/25 completed Not Available Not Available Not Available fluconazole 150 mg tablet active Not Available Not Available Not Available valacyclovi r 1 gram tablet TAKE 2 TABLETS BY MOUTH EVERY 12 HOURS 08/08 completed Not Available Not Available Not Available hydrocodone 5 mg-acetamin ophen 325 mg tablet TAKE 1 TABLET BY MOUTH EVERY 4 HOURS NEEDED FOR PAIN. STOP CONTRAVE UNTIL OFF NARCOTICS 08/08 completed Not Available Not Available Not Available ondansetron HCl 4 mg tablet TK 1 T PO Q 8 H PRF NAUSEA OR VOM active Not Available Not Available No t Available Synthroid 125 mcg tablet Take 1 tablet every day by oral route in the morning for 30 days. 03/07 completed Not Available Not Available Not Available sumatriptan 50 mg tablet TK 1 T PO AT ONSET OF HEADACHE MAY REPEAT IN 1 H IN NEEDED MAX OF 4 TABS IN 24 HOURS active Not Available Not Available No t Available penicillin V potassium 500 mg tablet 10/04 completed Not Available Not Available Not Available topiramate 25 mg tablet TAKE 1 TABLET BY MOUTH EVERY DAY active Not Available Not Available No t Available valacyclovi r 500 mg tablet TAKE 1 TABLET BY MOUTH EVERY DAY active Not Available Not Available No t Available spironolact one 25 mg tablet TAKE 1 TABLET BY MOUTH EVERY DAY IN THE MORNING 12/25 completed Not Available Not Available Not Available ropinirole 0.25 mg tablet active Not Available Not Available Not Available ciprofloxac in 0.3 % eye drops INSTILL 1 2 DROPS IN AFFECTED EYE(S) EVERY 2 HOURS WHILE AWAKE X2 DAYS, THEN EVERY 4 HOURS X5 DAYS 02/14 completed Not Available Not Available Not Available oseltamivir 75 mg capsule 10/04 completed Not Available Not Available Not Available prednisone 50 mg tablet TAKE 1 TABLET BY MOUTH [address] SCAN active Not Available Not Available No t Available insulin syringe U-100 with needle 1 mL 31 gauge x 11/14 USE DIRECTED ONCE WEEKLY active Not Available Not Available No t Available ergocalcife rol (vitamin D2) 1,250 mcg (50,000 unit) capsule TAKE ONE CAPSULE BY MOUTH ONCE WEEKLY WITH A LARGE MEAL active Not Available Not Available No t Available clobetasol 0.05 % topical ointment APPLY TOPICALLY TO ANKLE RASH TWICE DAILY 08/08 completed Not Available Not Available Not Available methylpredn isolone 4 mg tablets in a dose pack FPD active Not Available Not Available Not Available metformin ER 500 mg tablet,exte nded release 24 hr TAKE 1 TABLET BY MOUTH EVERY DAY AT DINNER active Not Available Not Available No t Available spironolact one 50 mg tablet TK 1 T PO QD IN THE MORNING active Not Available Not Available No t Available amoxicillin 875 mg-potassiu m clavulanate 125 mg tablet 08/08 completed Not Available Not Available Not Available azithromyci n 500 mg tablet 02/07 /2023 completed Not Available Not Available Not Available Amnesteem 40 mg capsule TK 2 CS PO QD 10/04 completed Not Available Not Available Not Available Restasis 0.05 % eye drops in a dropperette active Not Available Not Available Not Available nitrofurant oin monohydrate /macrocryst als 100 mg capsule 12/25 completed Not Available Not Available Not Available duloxetine 30 mg capsule,del ayed release TAKE 1 CAPSULE BY MOUTH EVERY DAY IN THE MORNING active Not Available Not Available No t Available eszopiclone 2 mg tablet TAKE 1 TABLET BY MOUTH AT BEDTIME ON NIGHT OF SLEEP STUDY 08/08 completed Not Available Not Available Not Available Claravis 30 mg capsule TK 2 CS PO QD 10/04 completed Not Available Not Available Not Available ferrous sulfate 324 mg (65 mg iron) tablet,jose yed release TAKE 1 TABLET BY MOUTH EVERY DAY active Not Available Not Available No t Available tretinoin 0.05 % topical gel APPLY TOPICALLY TO AFFECTED AREA AT BEDTIME 12/25 completed Not Available Not Available Not Available Tri-Lo-Spri ntec 0.18 mg/0.215 mg/0.25 mg-0.025 mg tablet active Not Available Not Available Not Available Tirosint 125 mcg capsule TAKE ONE Capsule BY MOUTH EVERY MORNING with water only active Not Available Not Available No t Available Tirosint 137 mcg capsule TAKE ONE CAPSULE BY MOUTH DAILY IN THE MORNING 2022 active Not Available Not Available Not Avai lable Contrave 8 mg-90 mg tablet,exte nded release take 2 tablet twice daily 08/08 completed Not Available Not Available Not Available Xiidra 5 % eye drops in a dropperette INSTILL 1 DROP INTO BOTH EYES TWICE DAILY active Not Available Not Available No t Available Lomaira 8 mg tablet TAKE UP TO 3 TABLETS BY MOUTH IN THE MORNING BEFORE NOON 2022 active Not Available Not Available Not Avai lable Afluria Qd 2019-20 (36 mos up)(PF)60 mcg (15 mcg x4)/0.5 mL IM syringe TO BE ADMINISTE RED BY PHARMACIS T FOR IMMUNIZAT ION active Not Available Not Available No t Available Wegovy 0.25 mg/0.5 mL subcutaneou s pen injector Inject 0.25 mg every week by subcutane ous route with meals for 28 days. 08/08 completed Not Available Not Available Not Available Dodex 1,000 mcg/mL injection solution ADMINISTE R 1 ML UNDER THE SKIN EVERY WEEK IN THE MORNING active Not Available Not Available No t Available Vitals Date Recorded Body mass index (BMI) Body height Oxygen saturation Heart rate Body temperature Body weight Systolic And Diastolic Provider Name and Address Organization Details Last Updated DateTime 3 29.5 kg/m2 165.1 cm 99 % 68 /min 98 [degF] 67104.8 5 g 110/75 mm[Hg] Not Available [facility] 3 04:49:40 Date Recorded Body mass index (BMI) Body height Oxygen saturation Heart rate Body temperature Body weight Systolic And Diastolic Provider Name and Address Organization Details Last Updated DateTime 2 30.3 kg/m2 165.1 cm 98 % 72 /min 98 [degF] 38252.8 1 g 100/75 mm[Hg] Not Available [facility] 3 04:49:40 Date Recorded Body height Body mass index (BMI) Body weight Systolic And Diastolic Provider Name and Address Organization Details Last Updated DateTime 10/24/2022 165.1 cm 29 kg/m2 65775.51 g 103/71 mm[Hg] Gaye Beth Laura [facility] [employer] [facility] 10/24/2022 17:45:28 Date Recorded Body height Body mass index (BMI) Body weight Heart rate Systolic And Diastolic Provider Name and Address Organization Details Last Updated DateTime 11/23/2022 165.1 cm 28.7 kg/m2 25537.32 g 72 /min 121/80 mm[Hg] [place]IN Verdugo [facility] [employer] [facility] 11/23/2022 17:46:25 Date Recorded Body mass index (BMI) Body height Oxygen saturation Heart rate Body temperature Body weight Systolic And Diastolic Provider Name and Address Organization Details Last Updated DateTime 2 29.1 kg/m2 165.1 cm 99 % 80 /min 98 [degF] 60044.6 6 g 140/85 mm[Hg] Not Available [facility] 3 04:49:40 Social History Question Answer Notes LastModified by Organizat ion Details LastModified Time Tobacco Smoking Status Never Smoker Ermelinda Canas, RESOURCE ANALYST null, [place] [facility] 11/23/2022 17:38:21 What Is Your Level Of Caffeine Consumption? Occasional [id number] Information not available 08/30/2022 How Much Tobacco Do You Chew? None [id number] Information not available 08/30/2022 In The 14 Days Before Symptom Onset, Have You Had Close Contact With A Laboratory-confirm ed COVID-19 While That Case Was Ill? No [email or web address] Information n ot available 11/23/2022 In The 14 Days Before Symptom Onset, Have You Had Close Contact With A Person Who Is Under Investigation For COVID-19 While That Person Was Ill? No [email or web address] Information not available 11/23/2022 Which Illicit Or Recreational Drugs Have You Used? None [email or web address] Information not available 11/23/2022 What Is Your Relationship Status? [id number] Information not available 08/30/2022 Have You Recently Traveled Abroad? No [email or web address] Information not available 11/23/2022 Sex: Female Functional Status Question Answer Note LastModified by Organizat ion Details LastModified Time What is your level of alcohol consumption? None [id number] Information not available 08/30/2022 Do you or have you ever used smokeless tobacco? 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 Never used electronic cigarettes [email or web address] Information not available 11/23/2022 Mental Status None recorded. Family History Relationship Description Onset Age of this Age Resolved Age Notes LastModified by Organization Details LastModified Time Maternal Grandmother Chronic obstructive pulmonary disease Not available 11/23 17:38:21 Maternal Grandmother Acute stroke [email or web address] Not availabl e 11/23/2022 17:38:21 Mother Kidney disease [id number] Not available 08/30/2022 04:42:37 Father Heart disease [id number] Not available 08/30/2022 04:42:37 Maternal Grandfather Heart disease [id number] Not available 08/30/2022 04:42:37 Paternal Grandfather Heart disease [id number] Not available 08/30/2022 04:42:37 Medical History Condition Response BLINDNESS N RHEUMATIC FEVER N MRSA N INFECTIOUS DISEASE N HEART ARRHYTHMIA N LUNG DISEASE/DISORDER N INSOMNIA N RADIATION / CHEMOTHERAPY N COPD N HIGH CHOLESTEROL / HYPERLIPIDEMIA N EYE PROBLEMS N HYPERTHYROIDISM N BLOOD DISEASES N SURGERY N EDEMA N HYPOTHYROIDISM Y DEPRESSION (INCLUDING POST ) N HAVE YOU BEEN HOSPITALIZED OR SEEN [facility] IN THE PAST YEAR ? N STROKE/TIA N THYROID DISEASE Y LYMPHEDEMA N BENIGN PROSTATIC HYPERPLASIA N OBESITY N EXCESSIVE PERSPIRATION N GERD/NAUSEA N ANEURYSM N OSTEOPOROSIS N ARTHRITIS Y USE OF BLOOD THINNERS N SKIN PROBLEMS N DIABETES, TYPE N PARATHYROID DISEASE N BLOOD CLOTS N HEPATITIS / LIVER DISEASE N GOUT N ALZHEIMER'S DISEASE N HERPES N RETINOPATHY N SEIZURES/EPILEPSY N HEADACHES/MIGRAINES Y GI PROBLEMS N DIZZINESS N KIDNEY DISEASE N HEART DISEASE/HEART PROBLEMS N AIDS/HIV N LIVER DISEASE N HYPERTENSION N CANCER: SPECIFY N BLOOD TRANSFUSION N ANEMIA/BLOOD DISORDER N AUTOIMMUNE DISEASE Y TUBERCULOSIS N GLAUCOMA N Gynecological HistoryNo gynecological history recorded. Obstetrics History GPAL:G 0 P 0 0 0 0 Past Encounters Encounter ID Performer Location Encounter Start Date Encounter Closed Date Diagnosis/Indication Diagnosis SNOMED-CT Code Diagnosis ICD10 Code Diagnosis IMO Codes Diagnosis Note [id number] Starr Trujillo MD [facility] [address] [place] [address] 10/18/2020 00:00:00 10/18/2020 21:33:46 [id number] Starr Trujillo MD [facility] [address] [place] [address] 02/14/2021 00:00:00 02/14/2021 18:10:37 [id number] Starr Trujillo MD [facility] [address] [place] [address] 06/13/2021 00:00:00 06/13/2021 18:02:30 [id number] [facility] [address] [place] [address] 10/10/2021 00:00:00 10/10/2021 18:19:05 [id number] [facility] [address] [place] [address] 02/03/2022 00:00:00 02/03/2022 18:03:22 [id number] Starr Trujillo MD [facility] [place] [address] [place] [address] 08/08/2022 00:00:00 08/08/2022 19:55:11 [id number] Starr Trujillo MD [facility] [place] [address] [place] [address] 10/24/2022 17:34:17 10/24/2022 17:49:28 Blood pressure taking [id number] Z01.30 Blood pressure in ideal range and patient tolerating her phentermin e with no evidence of palpitatio ns, anxiety or hypertensi on. Continue low dose phentermin e (lomaira 36 mg). [id number] MD NICHOLAS [facility] Krish Handley [address] [place] [address] 11/23/2022 17:37:39 11/23/2022 17:48:33 Blood pressure taking [id number] Z01.30 Blood pressure in ideal range and patient tolerating her phentermin e with no evidence of palpitatio ns, anxiety or hypertensi on. Continue low dose phentermin e (lomaira 36 mg). Health Concerns Section Related Observation LastModified by Organization Detai ls LastModified Time None Recorded Concern Status LastModified by Organization Details LastModified Time None Recorded Advance Directives Directive None Recorded Payers Insurance Date Sequence Insurance Name Policy Number Policy Monte Covered Member ID Monte Member ID Guarantor Name 12/09/2022 1 [facility] [id number] Luli Fish [id number] Luli Fish Notes Date Note Type Note Provider Name and Address Organization Details Recorded Time 10/24/2022 text/html 42 yo female comes in for blood pressure check to continue phentermine therapy for weight loss control. Starr Trujillo MD [address] [place] [address], [facility], [place], [address], [facility] [employer] 10/24/2022 20:32:55 11/23/2022 text/html 42 yo female comes in for blood pressure test to screen for any evidence of hypertension. Patient on phentermine for energy and weight loss and tolerating well. Starr Trujillo MD [address] [place] [address], [place], [address], [place] [facility] 11/23/2022 21:16:17 OBGyn Episode No OBEpisode recorded.
--- OUTSIDE RECORDS SUMMARY | 2025-06-26 16:55 | XMS_ITS | Clinical Summary ---
Author Organization [facility] Chris on Address [address] [place] [id number] Care Team Providers Care Commercial Front Load Driver Name Role Phone Unavailable Primary Care [...] Comments Blood Pressure 124/84 08/11/2019 12:[address] MANAGER Pulse 78 08/11/2019 12:[address] MANAGER Temperature 36.9 C (98.5 F) 08/11/2019 12:[address] MANAGER Respiratory Rate 18 08/11/2019 12:[address] MANAGER Oxygen Saturation 99% 03/27/2019 12:13 PM CDT Inhaled Oxygen Concentration - - Weight 63.5 kg (140 lb) 08/11/2019 12:[address] MANAGER Height 165.1 cm (5' 5) 08/11/2019 12:[address] MANAGER Body Mass Index 23.3 08/11/2019 12:[address] MANAGER Plan of Treatment Health Maintenance Due Date Last Done Comments DTAP/TDAP/TD VACCINES (1 - Tdap) 1999 HEPATITIS B VACCINES (1 of 3 - 19+ 3-dose series) 01/2000 HPV/Cotest (21-29) 2001 CERVICAL CANCER SCREENING 2010 HPV/Cotest (30-65) 2010 PAP SMEAR 2010 BREAST CANCER SCREENING 2020 INFLUENZA VACCINE (#1) 2025 HPV VACCINES (No Doses Required) Completed Insurance
[2025-06-26 16:56] VITALS: BP 137/84; PULSE 84; RESP 18; O2SAT 96
[2025-06-26 17:47] LABS: BEDSIDEPREGUCG Negative (Negative)
--- NOTE | 2025-06-26 18:06 | ED_ITS ---
HPI - Back Pain/Injury General Chief Complaint: Back Pain/Injury Stated Complaint: right lower back pain Time Seen by Provider: 06/26/25 16:46 History of Present Illness HPI Narrative: Patient is a 44-year-old female who presents ER with right lower quadrant abdominal pain and groin pain. Radiates into the thigh. Ongoing for several days. Was seen in urgent care did recommend come to the ER for CT scan. No urinary frequency urgency or dysuria. No known injury. Worse with physical movements and external rotation. Improved with leg insert positions. She has tried ibuprofen and Tylenol without significant improvement. Related Data Home Medications ?Medication ?Instructions ?Recorded ?Confirmed ?Last Taken ?Type cholecalciferol (vitamin D3) 1,250 1,250 mcg PO WEEKLY 02/17/20 06/24/25 Unknown History mcg (50,000 unit) capsule valacyclovir 500 mg tablet mg PO 04/13/23 04/30/25 Unk nown History norgestimate 0.18 mg/0.215mg/0.25 1 tablet PO Q24H 06/24/25 Unknown History mg-ethinyl estradiol 0.025 mg tablet (Pzi-Me-Zgnfwyegp) Allergies Allergy/AdvReac Type Severity Reaction Status Date / Time trimethoprim Allergy Intermediate RASH Verified 06/26/25 10:41 iodine Allergy Mild Itching Verified 06/26/25 10:41 sulfamethizole Allergy Unknown Skin Verified 06/26/25 10:41 Reaction Contrast Media Allergy Mild ITCHING Uncoded 04/30/25 08:23 Review of Systems 2 Review of Systems: All systems reviewed & are unremarkable except as noted in HPI and below Constitutional: Constitutional: Reports no additional constitutional complaints Cardiovascular: Cardiovascular: Reports no additional cardiovascular complaints Respiratory: Respiratory: Reports no additional respiratory complaints Gastrointestinal: Gastrointestinal: Reports no additional gastrointestinal complaints Genitourinary: Genitourinary: Reports no additional female genitourinary complaints [facility] Past Medical History Medical History Fibromyalgia Depression 2006 PCOS (polycystic ovarian syndrome) Hypothyroidism Migraine Surgical History Surgical History History of lumbar discectomy Hx of LASIK History of tonsillectomy History of hand surgery History of surgical removal of ganglion cyst History of bunionectomy History of section Social History Social History Smoking status: Never smoker Alcohol intake: never Substance use: never Substance use type: does not use Lack of Transportation: No Lack of Food: Never True Current Housing: I Have Housing Concerned About Future Housing: No Difficulty Paying Gas/Electric Bills: No Difficulty Paying for Meds: No Currently Unemployed: No Education: Bachelor's Degree Difficulty w/ Childcare or Family Care: No Living arrangements: with family Occupation/Education: occupation Gender identity (if verbalized by the patient): Female Spiritual care concerns: No Agree to blood products: Yes Exam 2 Narrative: GENERAL: Well-appearing, well-nourished, and in no acute distress. HEAD: Normocephalic, atraumatic. ENT: Mucous membranes moist. CHEST: Clear to auscultation. No respiratory distress. HEART: Regular rate and rhythm. Normal peripheral pulses. ABDOMEN: Soft, nontender, nondistended, mild tenderness over the inguinal crease the right leg.. EXTREMITIES: Normal range of motion. No edema. SKIN: Warm, dry, no rash. NEURO: Alert and oriented x3. PSYCH: Normal mood and affect. Course Course Emergency Course: Imaging without acute issue. Suspect muscle strain. Appropriate for discharge home. Blood work is not returned was not felt to be relevant at this time given negative scan and location patient's pain. Will give anti-inflammatories muscle relaxers. Vital Signs Vital signs: Vital Signs Temperature 98 F 06/26/25 11:42 Pulse Rate 98 06/26/25 11:42 Respiratory Rate 16 06/26/25 11:42 Blood Pressure 151/93 H 06/26/25 11:42 Pulse Oximetry 100 06/26/25 11:42 Oxygen Delivery Room Air 06/26/25 11:42 Temperature 98 F 06/26/25 11:42 Pulse Rate 84 06/26/25 16:56 Respiratory Rate 18 06/26/25 16:56 Blood Pressure 137/84 06/26/25 16:56 Pulse Oximetry 96 06/26/25 16:56 Oxygen Delivery Room Air 06/26/25 11:42 MDM Differential Diagnosis Differential Diagnosis: Appendicitis, kidney stone, ovarian cyst, hip flexor strain, lymphadenopathy Lab Data [facility] Lab Attestation statement: I personally reviewed the patient's lab results. 06/26/25 18:09 06/26/25 18:09 Labs: Lab Results 06/26/25 06/26/25 Range/Units 17:45 18:09 WBC Pending RBC Pending Hgb Pending Hct Pending MCV Pending MCH Pending MCHC Pending RDW Pending Plt Count Pending MPV Pending Immature Gran % (Auto) Pending Neut % (Auto) Pending Lymph % (Auto) Pending [place] % (Auto) Pending Eos % (Auto) Pending Baso % (Auto) Pending Lymph # (Auto) Pending [place] # (Auto) Pending Eos # (Auto) Pending Baso # (Auto) Pending Abs Immat Gran (auto) Pending Absolute Neuts (auto) Pending Absolute Nucleated RBC Pending Nucleated RBC % Pending Sodium Pending Potassium Pending Chloride Pending Carbon Dioxide Pending Anion Gap Pending BUN Pending Creatinine Pending Estim Creat Clear Calc Pending Estimated GFR Pending Glucose Pending Calcium Pending Total Bilirubin Pending AST Pending ALT Pending Alkaline Phosphatase Pending Total Protein Pending Albumin Pending POC Urine HCG, Qual Negative (Negative) Imaging Data Attestation: I personally reviewed and interpreted this imaging study as follows: Radiologist's impression: ITS Impressions Abdomen/Pelvis CT 06/26/25 17:59 IMPRESSION: 1. Nonobstructing left nephrolithiasis. Discharge Plan Discharge Clinical Impression: Strain of flexor muscle of right hip Patient Disposition: Home Condition: Stable Instructions: Muscle Strain (ED) Additional Instructions: It is felt that you have a strain of your hip flexors. Take anti-inflammatories and ice the area. Also perform stretching exercises that stretch the hip flexor. Return ER if you suffered a new injury. Patient Language: Taiwanese Prescriptions: New cyclobenzaprine 10 mg tablet 10 mg PO TID PRN (Reason: muscle spasm) Qty: 20 0RF naproxen 375 mg tablet 375 mg PO BID Qty: 14 0RF No Action valacyclovir 500 mg tablet PO cholecalciferol (vitamin D3) 1,250 mcg (50,000 unit) capsule 1,250 mcg PO WEEKLY norgestimate-ethinyl estradiol [Imq-Sb-[place]] 0.18/0.215/0.25 mg-0.025 mg tablet 1 tablet PO Q24H ferrous sulfate 324 mg (65 mg iron) tablet,delayed release (DR/EC) 324 mg PO BID Qty: 180 1RF cyclobenzaprine 5 mg tablet See Rx Instructions .ROUTE .COMPLEX Qty: 60 1RF Dose Instruction: TAKE 1 TABLET BY MOUTH EVERY DAY AT BEDTIME NEEDED FOR MUSCLE SPASM Rx Instructions: TAKE 1 TABLET BY MOUTH EVERY DAY AT BEDTIME NEEDED FOR MUSCLE SPASM levothyroxine 125 mcg tablet See Rx Instructions .ROUTE .COMPLEX Qty: 90 1RF Dose Instruction: TAKE 1 TABLET BY MOUTH DAILY Rx Instructions: TAKE 1 TABLET BY MOUTH DAILY gabapentin 300 mg capsule 300 mg PO QHS Qty: 90 1RF dextroamphetamine-amphetamine 15 mg capsule,extended release 24hr 15 mg PO QAM Qty: 30 0RF Follow-up/Referrals: Nahomy Rodriguez DO [Primary Care Provider, Family Practice] - 1 Week
[2025-06-26 19:14] LABS: Alanine Aminotransferase 15 U/L (6-35); Albumin Level 4.4 g/dL (3.5-5.1); Alkaline Phosphatase 82 U/L (38-126); Anion Gap 9 mmol/L (4-12); Aspartate Amino Transferase 23 U/L (14-36); Bilirubin,Total 0.6 mg/dL (0.2-1.3); Blood Urea Nitrogen 18 mg/dL (7-17); Calcium 9.2 mg/dL (8.4-10.2); Carbon Dioxide 23 mmol/L (22-30); Chloride 104 mmol/L (98-107); Estimated CRCL calculation 89 ml/min; Estimated Glomerular Filt Rate > 60; Glucose 85 mg/dL (65-110); Potassium 3.6 mmol/L (3.4-5.0); Sodium 136 mmol/L (137-145); Total Protein 7.6 g/dL (6.3-8.2)
[2025-06-26 19:24] VITALS: BP 119/86; PULSE 82; RESP 18; O2SAT 100
== END 2025-06-26 19:25 | disposition home or self-care (01) ==
PROVIDERS: Emergency Provider Emergency Medicine; PCP Family Medicine
DX: S76.011A Strain of muscle, fascia and tendon of right hip, initial encounter (principal); E28.2 Polycystic ovarian syndrome; E03.9 Hypothyroidism, unspecified; M79.7 Fibromyalgia; N20.0 Calculus of kidney; X58.XXXA Exposure to other specified factors, initial encounter
CPT/HCPCS: 36415; 74176; 80053; 81025; 99284